=== PATIENT | female | born 1980 | race Caucasian/White ===

== ENCOUNTER 2020-07-10 00:12 | Emergency (ER) | payer OTHER, SELFPAY ==
[2020-07-10 00:22] VITALS: BP 119/48; PULSE 73; PULSE 84; RESP 18; TEMP 36.9; O2SAT 98; BMI 28.9
--- NOTE | 2020-07-10 00:26 | XR_ITS ---
EXAMINATION: XR KNEE, RIGHT CLINICAL INFORMATION: Right knee pain. Fall. COMPARISON: 12/12/2019 TECHNIQUE: Four views of the right knee. FINDINGS: No fracture or subluxation. Compartmental joint spaces are maintained. Moderate joint effusion present. XR/XR knee RT 4V IMPRESSION: No acute osseous abnormality. Moderate joint effusion.
[2020-07-10] MEDS: oxyCODONE HCl Immed Release 5 MG TABLET PO (00:45)
--- NOTE | 2020-07-10 01:23 | ED_ITS ---
HPI - Fall General Chief Complaint: Fall Stated Complaint: knee pain Time Seen by Provider: 07/10/20 00:26 Source: patient Mode of arrival: EMS Limitations: no limitations History of Present Illness HPI Narrative: patient presents to ED for right knee pain after fall. Patient states she fell onto the right knee due uneveness of the sidewalk. patieint denies having any chest pain, headache, dizziness, shorntess of breath, or abdominal pain before fallin. Patient denies hitting head or loss of consciousness. Patient states knee swelling since fall. Patient states this occurred today. Patient denies any other complaints. Related Data Home Medications Medication Instructions Recorded Confirmed tramadol 50 mg tablet 50 mg PO DAILY PRN 06/24/20 Previous Rx's Medication Instructions Recorded oxycodone-acetaminophen [Percocet] 1 tab PO TID PRN #9 tab 07/10/20 Allergies Allergy/AdvReac Type Severity Reaction Status Date / Time No Known Allergies Allergy Unknown UNKNOWN Verified 07/10/20 00:21 [NO KNOWN ALLERGIES] Motrin Allergy Unknown stomach Uncoded 01/18/17 00:00 upset Review of Systems Review of Systems: Yes all other systems are reviewed and are negative Constitutional: Constitutional: Reports as per HPI and Reports no additional constitutional complaints Eyes: Eyes: Reports as per HPI and Reports no additional eye complaints ENT: Reports system reviewed and no additional complaints, except as documented and Reports as per HPI Cardiovascular: Cardiovascular: Reports as per HPI and Reports no additional cardiovascular complaints Respiratory: Respiratory: Reports as per HPI and Reports no additional respiratory complaints Gastrointestinal: Gastrointestinal: Reports as per HPI and Reports no additional gastrointestinal complaints Musculoskeletal: Musculoskeletal: Reports no additional musculoskeletal complaints and Reports as per HPI Comments: Right knee pain Neurologic: Reports system reviewed and no additional complaints, except as do cumented and Reports as per HPI Psychiatric: Psychiatric: Reports no additional psychiatric complaints and Reports as per HPI [facility] Past Medical History Medical History No known health problems Social History Social History Alcohol intake: unknown Smoking Status: Unknown if ever smoked Use of substances other than those prescribed or required for medical reasons: Unknown Advance Directives: No Advance Directives Information Provided: No Physical Exam Vital Signs: Vital Signs: Last Vital Signs Temp 98.6 F 07/10/20 01:52 Pulse 70 11/27/20 01:52 Resp 18 07/10/20 01:52 BP 103/72 07/10/20 01:52 Pulse Ox 100 07/10/20 01:52 Body Mass Index 28.9 Const: General: cooperative, healthy appearing, alert, awake and acute distress HENMT: Head: Yes normal to inspection, Yes No palpable skull fracture present, Yes atraumatic, No Valadez's sign, No contusion, No hematoma, No laceration, No palpable skull fracture, No raccoon eyes and No Temporal artery tenderness present Eyes: General: appearance normal, both eyes and all related structures Neck: Neck: Yes normal visual inspection, Yes full ROM, Yes no lymphadenopathy, Yes no meningeal signs, Yes trachea midline, Yes supple and No tender Chest: Chest palpation & inspection: normal inspection of the chest, normal palpation of entire chest wall and no localized rib tenderness Resp: Effort & Inspection: normal respiratory effort and able to speak in complete sentences Auscultation: clear to auscultation bilaterally Cardio: Jugular venous distension: no JVD Heart sounds: S1 normal heart sound present and S2 normal heart sound present GI: Inspection: Yes normal to inspection and No abdominal wall ecchymosis Palpation (GI): Soft to palpation, not firm, nontender, no guarding and not rigid : General: No CVA tenderness and Yes no CVA tenderness Back/Spine/Pelvis: Back: no CVA tenderness, No CVA tenderness and No back tenderness Neuro: General: gait normal (not able to assees due to pain), no meningeal signs and CN's II-XI intact bilaterally Extrem: Other: right knee swelling and tender to palpation. Negative for any erythema or warmth. Patient has complete range of motion of bilateral upper extremity and left lower extremity. Negative for any either hip tenderness or internal rotation of leg to indicate fracture of the hip or dislocation. Course Course Course Narrative: Patient had x-ray of right knee to evaluate for fractures. Patient does not need any imaging of the head or neck. Patient denies hitting head or having any loss of consciousness. Reevaluation(s) Reevaluation #1: Right knee x-ray shows joint effusion and negative for any fractures. Most likely joint effusion after trauma probably means possible meniscal/ ligament tears. Knee is not erythematous or septic to indicate arthrocentesis. patient informed she should follow-up with ortho for MRI to make sure there is no ligament or meniscal tears with a moderate joint effusion after trauma. Time: 01:43 MDM - Fall MDM Narrative Medical decision making narrative: Knee sprain/contusion Discharge Plan Discharge Clinical Impression: Knee sprain, Joint effusion of knee Patient Disposition: Home, Self-Care Instructions: Knee Sprain (ED), Osteoarthritis (ED), Swollen Knee Joint (ED) Additional Instructions: return to the ED for worsening knee pain, worsening swelling, redness, fever, chills, calf pain, damage of red streaks, swelling of legs, or any other concerning symptoms. Prescriptions: New oxycodone-acetaminophen [Percocet] 5-325 mg tablet 1 tab PO TID PRN (Reason: pain) Qty: 9 RF: 0 No Action tramadol 50 mg tablet 50 mg PO DAILY PRN (Reason: pain) RF: 0 Referrals: Ava Merida MD [Physician] - 2 days (Right knee sprain. Xray shows moderate joint effusion after trauma. Patient will need MRI to rule out meniscus or ligaments tear.) Stand Alone Forms: Work/School Release Interventions: ED Discharge Assessment Last Done: 07/10/20 02:13 Print Language: Montenegrin
[2020-07-10] MEDS: Ketorolac Tromethamine 30 MG/ML VIAL IM (01:39)
[2020-07-10 01:52] VITALS: BP 103/72; PULSE 70; RESP 18; TEMP 37; O2SAT 100
== END 2020-07-10 02:20 | disposition home or self-care (01) ==
PROVIDERS: Emergency Provider Emergency Medicine; PCP Internal Medicine
DX: S83.91XA Sprain of unspecified site of right knee, initial encounter (principal); M25.561 Pain in right knee; M25.461 Effusion, right knee; W18.30XA Fall on same level, unspecified, initial encounter; Y93.9 Activity, unspecified; Y92.9 Unspecified place or not applicable; Y99.9 Unspecified external cause status; Z79.899 Other long term (current) drug therapy
CPT/HCPCS: 73564; 96372; 99284; J1885

== ENCOUNTER 2020-07-16 10:27 | Outpatient (REF) | payer OTHER, SELFPAY ==
--- NOTE | 2020-07-16 10:27 | XR_ITS ---
EXAMINATION: XR KNEE, RIGHT CLINICAL INFORMATION: Pain COMPARISON: July 10, 2020 TECHNIQUE: [place] view of the right knee FINDINGS: On this single view no acute fracture of the patella is evident. The medial and lateral facets appear unremarkable. On prior study of July 10, 2020 there was noted to be an effusion without acute bony abnormality of the right knee. XR/XR knee RT 2V IMPRESSION: No patellar abnormality appreciated.
== END 2020-07-16 10:28 | disposition home or self-care (01) ==
LOC: HO.HOSX 10:27
PROVIDERS: Visit Provider Physician Assistant
DX: M25.569 Pain in unspecified knee (principal); M22.2X9 Patellofemoral disorders, unspecified knee; M23.90 Unspecified internal derangement of unspecified knee
CPT/HCPCS: 73560; 99202

== ENCOUNTER 2021-03-29 20:19 | Emergency (ER) | payer OTHER, SELFPAY ==
[2021-03-29 20:41] VITALS: BP 118/71; PULSE 80; RESP 18; TEMP 37.2; O2SAT 99; BMI 30.1
[2021-03-29 21:37] LABS: Influenza A PCR NEGATIVE (Negative); Influenza B PCR NEGATIVE (Negative); Resp Syncy Virus RNA Qual PCR NEGATIVE (Negative); SARS COV2 PCR INHOUSE NEGATIVE (Negative)
--- NOTE | 2021-03-29 21:44 | ED_ITS ---
HPI - Nausea/Vomiting/Diarrhea General Chief complaint: Nausea/Vomiting/Diarrhea Stated complaint: Chills/Vomiting Time Seen by Provider: 03/29/21 21:36 Source: patient Mode of arrival: ambulatory Limitations: no limitations History of Present Illness MD elicited complaint: nausea and vomiting Onset (ago): hour(s) (since 1am ) Description of vomiting: food contents Associated nausea: Yes Associated abdominal pain: No Location of pain: none Severity: severe Exacerbating factors: eating Relieving factors: none Context: possible food poisoning Associated symptoms: fever/chills Related Data Home Medications Medication Instructions Recorded Confirmed tramadol 50 mg tablet 50 mg PO DAILY PRN 06/24/20 03/04/21 tizanidine 4 mg tablet 4 mg PO TID 07/14/20 03/04/21 Previous Rx's Medication Instructions Recorded oxycodone-acetaminophen 5 mg-325 1 tab PO TID PRN #9 tab 07/10/20 mg tablet (Percocet) tramadol 50 mg tablet 50 mg PO Q8H PRN #20 tab 07/14/20 naproxen 500 mg tablet 500 mg PO BID 30 Days #60 tab 07/16/20 leg brace (Knee Support Brace) #1 ea 07/22/20 quetiapine 25 mg tablet 25 mg PO BEDTIME #30 tab 08/09/20 lorazepam 1 mg tablet 1 mg PO BID PRN #60 tab 09/14/20 ondansetron 4 mg disintegrating 4 mg PO Q8H PRN #20 tab 03/30/21 tablet Allergies Allergy/AdvReac Type Severity Reaction Status Date / Time Motrin Allergy Unknown stomach Uncoded 03/29/21 20:40 upset Review of Systems Review of Systems: Constitutional : No Weight loss, No Fever, No Chills ENT/Mouth : No sore throat, No Rhinorrhea Eyes: No Swelling, No Redness Cardiovascular : No Chest Pain, No SOB, NoEdema Respiratory : No Cough, No Sputum, No Wheezing Gastrointestinal : Positive Nausea, Positive Vomiting, no Diarrhea, no abdominal Pain, No Hematochezia, No Melena Genitourinary : No Dysuria, No Urinary Frequency, No Hematuria, No Urgency Musculoskeletal : No joint pain, No Myalgias, No Joint Swelling Skin : No Skin Lesions, No rash Neuro : No Weakness, No Numbness, No Dizziness, No Headache Psych : No Anxiety/Panic, No Depression Heme/Lymph: No Bruising, No Lymphadenopathy Endocrine : No Polyuria, No Polydipsia All other systems reviewed and are negative. Gastrointestinal: Gastrointestinal: Reports nausea PMFSH Past Medical History Attestation statement: The following information was validated with the patient. Medical History Anxiety No known health problems Surgical History History of tubal ligation Family History Family History Father Hypertension Mother Diabetes Maternal Grandmother Breast cancer Daughter In good health Son In good health Sister In good health Sister In good health Brother In good health Social History Social History (Updated 03/29/21 @ 22:05 by Janina Hanson DO) Alcohol intake: unknown Patient Tobacco Use Status: Never used Tobacco Advance Directives: No Advance Directives Information Provided: No Patient : No Current occupational status: unemployed Physical Exam Vital Signs: Vital Signs: Last Vital Signs Temp 98.8 F 03/29/21 22:00 Pulse 66 03/29/21 22:49 Resp 16 03/29/21 22:49 BP 119/62 03/29/21 22:49 Pulse Ox 97 03/29/21 22:49 Body Mass Index 30.1 Appearance: Alert. Oriented X3. No acute distress. Eyes: Pupils equal, round and reactive to light. ENT: Pharynx mild dry MM Neck: Normal inspection. Neck supple. CVS: Normal heart rate and rhythm. Pulses normal. Respiratory: No respiratory distress. Breath sounds normal. Abdomen: Soft and nontender. Skin: Skin warm and dry. Normal skin color. Normal skin turgor. Extremities: No lower extremity edema. No calf ttp Neuro: Oriented X 3. No motor deficit. No sensory deficit. Course Course Course Narrative: slight elevation in LFTs but no abdominal pain feels better, tolerating PO MDM - Nausea/Vomiting/Diarrhea MDM Narrative Medical decision making narrative: 40 yo female with n/v after eating soup at home, no abdominal ttp will need labs, IVF, IV zofran, COVID swab dispo per results and findings. Lab Data Result diagrams: 03/29/21 22:33 03/29/21 22:33 Labs: Lab Results 03/29/21 03/29/21 03/29/21 Range/Units 20:41 22:33 22:33 WBC 9.9 (4.8-10.8) X10*3/uL RBC 4.08 L (4.20-5.50) X10*6/uL Hgb 13.3 (12.0-16.0) g/dl Hct 38.6 (37-47) % MCV 94.6 (80-98) fL MCH 32.6 (27.0-33.0) pg MCHC 34.5 (31.0-35.0) g/dl RDW 11.7 (11.0-16.0) % Plt Count 258 (160-400) X10*3/uL MPV 10.3 (9.4-12.3) fL Immature Gran % (Auto) 0.3 (0.0-0.4) % Neut % (Auto) 57.9 (45-73) % Lymph % (Auto) 33.8 (20-40) % Marshall % (Auto) 5.9 (2-11) % Eos % (Auto) 1.8 (0-4) % Baso % (Auto) 0.3 (0-2) % Lymph # (Auto) 3.3 (1.2-4.9) X10*3/uL Marshall # (Auto) 0.6 (0.1-1.2) X10*3/uL Eos # (Auto) 0.2 (0.0-0.4) X10*3/uL Baso # (Auto) 0.0 (0.0-0.2) X10*3/uL Abs Immat Gran (auto) 0.03 (0.00-0.03) X10*3/uL Absolute Neuts (auto) 5.7 (2.0-8.3) X10*3/uL Absolute Nucleated RBC 0.000 (0.0-0.012) X10*3/uL Nucleated RBC % (auto) 0.0 (0.0-0.2) /100WBC Sodium 139 (135-145) mmol/L Potassium 3.6 (3.3-5.1) mmol/L Chloride 106 (96-108) mmol/L Carbon Dioxide 26 (22-29) mmol/L Anion Gap 11 L (12-20) BUN 10 (9-16) mg/dL Creatinine 0.73 (0.5-1.4) mg/dL Estim Creat Clear Calc 86.4 Estimated GFR > 60 Random Glucose 93 (60-115) mg/dL Calcium 9.3 (8.4-10.2) mg/dL Magnesium 2.1 (1.6-2.6) mg/dL Total Bilirubin 1.1 H (0.0-1.0) mg/dL Direct Bilirubin 0.3 (0.0-0.5) mg/dL AST 44 H (5-31) U/L ALT 152 H (0-31) U/L Alkaline Phosphatase 109 (39-117) U/L Total Protein 6.6 (6.5-8.0) g/dL Albumin 4.2 (3.5-5.0) g/dL Lipase 13 (8-78) U/L Urine Color Urine Appearance Urine pH (5.0-8.0) Ur Specific [place] (1.005-1.025) Urine Protein (NEG-TRACE) MG/DL Urine Glucose (UA) (NEG) MG/DL Urine Ketones (NEG) MG/DL Urine Blood (NEG) Urine Nitrite (NEG) Ur Leukocyte Esterase (NEG) Urine RBC (0) /HPF Urine WBC (0-4) /HPF Ur Squamous Epith Cells /LPF Urine Bacteria /LPF Urine Test (NEGATIVE) Coronavirus (PCR) NEGATIVE (Negative) Influenza Type A (PCR) NEGATIVE (Negative) Influenza Type B (PCR) NEGATIVE (Negative) RSV RNA Qual (PCR) NEGATIVE (Negative) 03/29/21 03/29/21 Range/Units 22:44 22:45 WBC (4.8-10.8) X10*3/uL RBC (4.20-5.50) X10*6/uL Hgb (12.0-16.0) g/dl Hct (37-47) % MCV (80-98) fL MCH (27.0-33.0) pg MCHC (31.0-35.0) g/dl RDW (11.0-16.0) % Plt Count (160-400) X10*3/uL MPV (9.4-12.3) fL Immature Gran % (Auto) (0.0-0.4) % Neut % (Auto) (45-73) % Lymph % (Auto) (20-40) % Marshall % (Auto) (2-11) % Eos % (Auto) (0-4) % Baso % (Auto) (0-2) % Lymph # (Auto) (1.2-4.9) X10*3/uL Marshall # (Auto) (0.1-1.2) X10*3/uL Eos # (Auto) (0.0-0.4) X10*3/uL Baso # (Auto) (0.0-0.2) X10*3/uL Abs Immat Gran (auto) (0.00-0.03) X10*3/uL Absolute Neuts (auto) (2.0-8.3) X10*3/uL Absolute Nucleated RBC (0.0-0.012) X10*3/uL Nucleated RBC % (auto) (0.0-0.2) /100WBC Sodium (135-145) mmol/L Potassium (3.3-5.1) mmol/L Chloride (96-108) mmol/L Carbon Dioxide (22-29) mmol/L Anion Gap (12-20) BUN (9-16) mg/dL Creatinine (0.5-1.4) mg/dL Estim Creat Clear Calc Estimated GFR Random Glucose (60-115) mg/dL Calcium (8.4-10.2) mg/dL Magnesium (1.6-2.6) mg/dL Total Bilirubin (0.0-1.0) mg/dL Direct Bilirubin (0.0-0.5) mg/dL AST (5-31) U/L ALT (0-31) U/L Alkaline Phosphatase (39-117) U/L Total Protein (6.5-8.0) g/dL Albumin (3.5-5.0) g/dL Lipase (8-78) U/L Urine Color YELLOW Urine Appearance CLEAR Urine pH 6.0 (5.0-8.0) Ur Specific [place] 1.025 (1.005-1.025) Urine Protein NEG (NEG-TRACE) MG/DL Urine Glucose (UA) NEG (NEG) MG/DL Urine Ketones 5 (NEG) MG/DL Urine Blood TRACE (NEG) Urine Nitrite NEG (NEG) Ur Leukocyte Esterase NEG (NEG) Urine RBC 0-2 (0) /HPF Urine WBC 0 (0-4) /HPF Ur Squamous Epith Cells 1+ /LPF Urine Bacteria 1+ /LPF Urine Test NEGATIVE (NEGATIVE) Coronavirus (PCR) (Negative) Influenza Type A (PCR) (Negative) Influenza Type B (PCR) (Negative) RSV RNA Qual (PCR) (Negative) Discharge Plan Discharge Clinical Impression: Elevated liver function tests Vomiting Qualifiers: Vomiting type: unspecified Vomiting Intractability: non-intractable Nausea presence: with nausea Qualified Code(s): R11.2 - Nausea with vomiting, unspecified Patient Disposition: Home, Self-Care Instructions: Acute Nausea and Vomiting (ED) Additional Instructions: return to ED for any worsening symptoms or concerns your liver tests were slightly elevated likely due to vomiting please recheck in 3 days. ochoa pruebas de h?gado estaban ligeramente elevadas, probablemente debido a v?mitos, vuelva a verificar en 3 d?as. Prescriptions: New ondansetron 4 mg tablet,disintegrating 4 mg PO Q8H PRN (Reason: nausea and vomiting) Qty: 20 RF: 0 No Action tramadol 50 mg tablet 50 mg PO DAILY PRN (Reason: pain) RF: 0 quetiapine 25 mg tablet 25 mg PO BEDTIME Qty: 30 RF: 0 oxycodone-acetaminophen [Percocet] 5-325 mg tablet 1 tab PO TID PRN (Reason: pain) Qty: 9 RF: 0 tizanidine 4 mg tablet 4 mg PO TID RF: 0 tramadol 50 mg tablet 50 mg PO Q8H PRN (Reason: pain) Qty: 20 RF: 0 lorazepam 1 mg tablet 1 mg PO BID PRN (Reason: anxiety) Qty: 60 RF: 0 naproxen 500 mg tablet 500 mg PO BID 30 Days Qty: 60 RF: 3 (DME) Knee Support Brace Misc See Rx Instructions .MEDSUPPLY Qty: 1 RF: 0 Referrals: Physician,Unknown [Primary Care Provider] - 3 days Print Language: Zimbabwean
[2021-03-29 22:00] VITALS: BP 102/65; PULSE 85; RESP 18; TEMP 37.1; O2SAT 100
[2021-03-29] MEDS: 0.9 % Sodium Chloride 1,000 ML 999 ML IVCONT ×2 (22:36)
[2021-03-29 22:37] LABS: MANUAL DIFF FLAG NO
[2021-03-29] MEDS: ondansetron HCL 4 MG/2 ML VIAL IVPUSH (22:40)
[2021-03-29 22:43] LABS: Basophils Percent Auto 0.3 % (0-2); Eosinophils Absolute Auto 0.2 X10*3/uL (0.0-0.4); Eosinophils Percent Auto 1.8 % (0-4); Hematocrit 38.6 % (37-47); Hemoglobin 13.3 g/dl (12.0-16.0); Imm Gran Abs Auto 0.03 X10*3/uL (0.00-0.03); Imm Gran Pct Auto 0.3 % (0.0-0.4); Lymphocytes Absolute Auto 3.3 X10*3/uL (1.2-4.9); Lymphocytes Percent Auto 33.8 % (20-40); Mean Corpuscular HGB Conc 34.5 g/dl (31.0-35.0); Mean Corpuscular Hemoglobin 32.6 pg (27.0-33.0); Mean Corpuscular Volume 94.6 fL (80-98); Mean Platelet Volume 10.3 fL (9.4-12.3); Monocytes Absolute Auto 0.6 X10*3/uL (0.1-1.2); Monocytes Percent Auto 5.9 % (2-11); Neutrophils Absolute Auto 5.7 X10*3/uL (2.0-8.3); Neutrophils Percent Auto 57.9 % (45-73); Platelet Count 258 X10*3/uL (160-400); Red Blood Count 4.08 X10*6/uL (4.20-5.50); Red Cell Distribution Width 11.7 % (11.0-16.0); White Blood Count 9.9 X10*3/uL (4.8-10.8)
[2021-03-29 22:49] VITALS: BP 119/62; PULSE 66; RESP 16; O2SAT 97
[2021-03-29 22:50] LABS: Glucose Urine UA NEG (NEG); Leukocyte Esterase Urine NEG (NEG); Nitrite Urine NEG (NEG); Specific Gravity - Urine 1.025 (1.005-1.025); UACC Culture Trigger NO; Urine Blood TRACE (NEG); Urine Ketones 5 MG/DL (NEG); Urine Protein NEG (NEG-TRACE)
[2021-03-29 22:52] LABS: UPreg QC Valid YES; Urine Pregnancy NEGATIVE (NEGATIVE)
[2021-03-29 22:53] LABS: Appearance Urine CLEAR; Color Urine YELLOW
[2021-03-29 22:57] LABS: Bacteria Urine 1+ /LPF; RBC Urine 0-2 /HPF (0); Squamous Epithelial Cell Urine 1+ /LPF; WBC Urine 0 /HPF (0-4)
[2021-03-29 23:11] LABS: Alanine Aminotransferase 152 U/L (0-31); Albumin Level 4.2 g/dL (3.5-5.0); Alkaline Phosphatase 109 U/L (39-117); Anion Gap 11 (12-20); Aspartate Amino Transferase 44 U/L (5-31); Bilirubin Direct 0.3 mg/dL (0.0-0.5); Bilirubin Total 1.1 mg/dL (0.0-1.0); Blood Urea Nitrogen 10 mg/dL (9-16); Calcium 9.3 mg/dL (8.4-10.2); Carbon Dioxide 26 mmol/L (22-29); Chloride 106 mmol/L (96-108); Creatinine Clr Calc Pharmacy 86.4; Estimated Glomerular Filt Rate > 60; Glucose Random 93 mg/dL (60-115); Lipase 13 U/L (8-78); Magnesium 2.1 mg/dL (1.6-2.6); Potassium 3.6 mmol/L (3.3-5.1); Sodium 139 mmol/L (135-145); Total Protein 6.6 g/dL (6.5-8.0)
== END 2021-03-30 00:35 | disposition home or self-care (01) ==
PROVIDERS: Student in an Organized Health Care Education/Training Program; Emergency Provider Emergency Medicine
DX: R11.2 Nausea with vomiting, unspecified (principal); R79.89 Other specified abnormal findings of blood chemistry; Z20.822 Contact with and (suspected) exposure to COVID-19
CPT/HCPCS: 0241U; 36415; 80048; 80076; 81001; 81025; 83690; 83735; 85025; 96361; 96374; 99283; 99284; J2405

== ENCOUNTER 2021-07-28 21:45 | Emergency (ER) | payer OTHER, SELFPAY ==
[2021-07-28 22:10] VITALS: BP 110/72; PULSE 75; RESP 18; TEMP 36.6; O2SAT 98; BMI 30.4
--- NOTE | 2021-07-28 22:52 | ED.GENADULT ---
HPI - General Adult General Chief complaint: Upper Respiratory Symptoms Stated complaint: Covid symptoms Time Seen by Provider: 07/28/21 22:52 Source: patient Mode of arrival: ambulatory Limitations: no limitations History of Present Illness HPI narrative: headache and myalgias, not improved with tylenol. Patient has had fever. Patient started with symptoms this morning. Patient denies . Patient has slight cough. Patient is not vaccinated for COVID or influenza. Onset (ago): hour(s) Location: head, chest and back Severity: mild Pain Consistency: constant Associated symptoms: cough, fever/chills and headaches Related Data Home Medications Medication Instructions Recorded Confirmed tramadol 50 mg tablet 50 mg PO DAILY PRN 06/24/20 03/04/21 tizanidine 4 mg tablet 4 mg PO TID 07/14/20 03/04/21 Previous Rx's Medication Instructions Recorded oxycodone-acetaminophen 5 mg-325 1 tab PO TID PRN #9 tab 07/10/20 mg tablet (Percocet) tramadol 50 mg tablet 50 mg PO Q8H PRN #20 tab 07/14/20 naproxen 500 mg tablet 500 mg PO BID 30 Days #60 tab 07/16/20 leg brace (Knee Support Brace) #1 ea 07/22/20 quetiapine 25 mg tablet 25 mg PO BEDTIME #30 tab 08/09/20 lorazepam 1 mg tablet 1 mg PO BID PRN #60 tab 09/14/20 ondansetron 4 mg disintegrating 4 mg PO Q8H PRN #20 tab 03/30/21 tablet naproxen 500 mg tablet (Naprosyn) 500 mg PO BID #20 tab 07/29/21 Allergies Allergy/AdvReac Type Severity Reaction Status Date / Time Motrin Allergy Unknown stomach Uncoded 03/29/21 20:40 upset Review of Systems Constitutional: Constitutional: Reports no additional constitutional complaints Eyes: Eyes: Reports no additional eye complaints ENT: Denies dizziness Cardiovascular: Cardiovascular: Reports no additional cardiovascular complaints Respiratory: Respiratory: Reports as per HPI Gastrointestinal: Gastrointestinal: Reports no additional gastrointestinal complaints Genitourinary: Genitourinary: Reports no additional female genitourinary complaints Musculoskeletal: Musculoskeletal: Reports no additional musculoskeletal complaints Integumentary/Breasts: Skin/Breast: Denies rash Neurologic: Reports system reviewed and no additional complaints, except as documented, Denies dizziness and Denies Sensory deficit (Neuro) Psychiatric: Psychiatric: Denies anxiety PMFSH Past Medical History Medical History Anxiety No known health problems Surgical History History of tubal ligation Family History Family History Father Hypertension Mother Diabetes Maternal Grandmother Breast cancer Daughter In good health Son In good health Sister In good health Sister In good health Brother In good health Social History Social History Alcohol intake: unknown Patient Tobacco Use Status: Never used Tobacco Advance Directives: No Advance Directives Information Provided: Yes Current occupational status: unemployed Physical Exam Vital Signs: Vital Signs: Last Vital Signs Temp 98 F 07/28/21 22:10 Pulse 75 07/28/21 22:10 Resp 18 07/28/21 22:10 BP 110/72 07/28/21 22:10 Pulse Ox 98 07/28/21 22:10 BMI result Body Mass Index 30.4 Const: General: healthy appearing Nutritional Appearance: average body habitus Orientation/consciousness: oriented to person and patient oriented x3 Limitations: no limitations HENMT: Head: Yes normal to inspection Ears: external ears normal General nose exam: Normal external nose present Mouth: Normal oral and palatal mucosa present and oropharynx normal Throat: Yes posterior oropharynx normal Eyes: General: appearance normal, both eyes and all related structures Neck: Other: supple Neck: Yes normal visual inspection Chest: Chest palpation & inspection: normal inspection of the chest Resp: Auscultation: clear to auscultation bilaterally Cardio: Jugular venous distension: no JVD Rate: regular rate Rhythm: regular rhythm Heart sounds: S1 normal heart sound present and S2 normal heart sound present GI: Inspection: Yes normal to inspection Palpation (GI): Soft to palpation, nontender and No hepatosplenomegaly present Auscultation: normal bowel sounds : General: Yes no CVA tenderness Back/Spine/Pelvis: Back: no CVA tenderness Skin: General skin exam: no rashes or lesions noted Neuro: General: oriented to person and patient oriented x3 Cranial nerves: Yes CN's II-XII intact bilaterally Motor exam (neuro): 5/5 motor strength present throughout Sensory Exam: No Sensory deficit (Neuro) Extrem: General: Yes normal to inspection Psych: Appearance: grossly normal Course Reevaluation(s) Reevaluation #1: Covid negative, will start NSAIDs and dc home Time: 00:43 Medical Decision Making Lab Data Labs: Lab Results 07/28/21 Range/Units 23:36 Influenza Type A (PCR) NEGATIVE (Negative) Influenza Type B (PCR) NEGATIVE (Negative) RSV RNA Qual (PCR) NEGATIVE (Negative) SARS-CoV-2 RNA (RT-PCR) NEGATIVE (Negative) Discharge Plan Discharge Clinical Impression: Viral infection Upper respiratory infection Qualifiers: URI type: unspecified URI Qualified Code(s): J06.9 - Acute upper respiratory infection, unspecified Patient Disposition: Home, Self-Care Instructions: Viral Syndrome (ED) Prescriptions: New naproxen [Naprosyn] 500 mg tablet 500 mg PO BID Qty: 20 RF: 0 No Action tramadol 50 mg tablet 50 mg PO DAILY PRN (Reason: pain) RF: 0 quetiapine 25 mg tablet 25 mg PO BEDTIME Qty: 30 RF: 0 oxycodone-acetaminophen [Percocet] 5-325 mg tablet 1 tab PO TID PRN (Reason: pain) Qty: 9 RF: 0 ondansetron 4 mg tablet,disintegrating 4 mg PO Q8H PRN (Reason: nausea and vomiting) Qty: 20 RF: 0 tizanidine 4 mg tablet 4 mg PO TID RF: 0 tramadol 50 mg tablet 50 mg PO Q8H PRN (Reason: pain) Qty: 20 RF: 0 lorazepam 1 mg tablet 1 mg PO BID PRN (Reason: anxiety) Qty: 60 RF: 0 naproxen 500 mg tablet 500 mg PO BID 30 Days Qty: 60 RF: 3 (DME) Knee Support Brace Misc See Rx Instructions .MEDSUPPLY Qty: 1 RF: 0 Referrals: Bri Benitez MD [Primary Care Provider] - 1 week
[2021-07-28] MEDS: Ketorolac Tromethamine 60 MG/2 ML VIAL IM (23:38)
[2021-07-29 00:34] LABS: Influenza A PCR NEGATIVE (Negative); Influenza B PCR NEGATIVE (Negative); Resp Syncy Virus RNA Qual PCR NEGATIVE (Negative); SARS COV2 PCR INHOUSE NEGATIVE (Negative)
== END 2021-07-29 01:48 | disposition home or self-care (01) ==
PROVIDERS: Emergency Provider Emergency Medicine; PCP Internal Medicine
DX: J06.9 Acute upper respiratory infection, unspecified (principal); B34.9 Viral infection, unspecified; Z20.822 Contact with and (suspected) exposure to COVID-19
CPT/HCPCS: 0241U; 36415; 96372; 99284; J1885

== ENCOUNTER 2022-08-09 22:46 | Emergency (ER) | payer OTHER, SELFPAY ==
[2022-08-09 22:55] VITALS: BP 136/76; PULSE 74; RESP 18; TEMP 36.9; O2SAT 97; BMI 30.4
--- NOTE | 2022-08-09 22:55 | ED_ITS ---
HPI - General Adult General Chief complaint: Nausea/Vomiting/Diarrhea <BRISSA Vance - Last Filed: 08/09/22 22:57> Stated complaint: vomiting 6 days <BRISSA Vance - Last Filed: 08/09/22 22:57> Time Seen by Provider: 08/10/22 02:36 <BRISSA Vance - Last Filed: 08/09/22 22:57> Source: patient and family <Yonatan Maher MD - Last Filed: 08/10/22 06:38> Mode of arrival: ambulatory <Yonatan Maher MD - Last Filed: 08/10/22 06:38> Limitations: no limitations <Yonatan Maher MD - Last Filed: 08/10/22 06:38> History of Present Illness HPI narrative: 42-year-old female presented with abdominal pain and nausea vomiting for 6 days. Patient is here for evaluation for nausea and vomiting, started 6 days ago on day 1. Patient had some abdominal pain that is resolved now but persistent of the nausea and vomiting on unable to keep anything down patient feels generally weak no upper respiratory symptoms or flu-like symptoms. No fever, no chills, no recent travel, no sick contacts. <Yonatan Maher MD - Last Filed: 08/10/22 06:38> Related Data Home medications: Home Medications Medication Instructions Recorded Confirmed tramadol 50 mg tablet 50 mg PO DAILY PRN pain 06/24/20 03/04/21 tizanidine 4 mg tablet 4 mg PO TID 07/14/20 03/04/21 Previous Rx's Medication Instructions Recorded oxycodone-acetaminophen 5 mg-325 1 tab PO TID PRN pain #9 tabs 07/10/20 mg tablet (Percocet) tramadol 50 mg tablet 50 mg PO Q8H PRN pain #20 tabs 07/14/20 naproxen 500 mg tablet 500 mg PO BID 30 days #60 tabs 07/16/20 leg brace (Knee Support Brace) #1 ea 07/22/20 quetiapine 25 mg tablet 25 mg PO BEDTIME #30 tabs 08/09/20 lorazepam 1 mg tablet 1 mg PO BID PRN anxiety #60 tabs 09/14/20 ondansetron 4 mg disintegrating 4 mg PO Q8H PRN nausea and 03/30/21 tablet vomiting #20 tabs naproxen 500 mg tablet (Naprosyn) 500 mg PO BID #20 tabs 07/29/21 omeprazole magnesium 20 mg 20 mg PO BID #30 tabs 08/10/22 tablet,delayed release (Prilosec OTC) ondansetron HCl 4 mg tablet 4 mg PO Q8-12H PRN nausea and 08/10/22 vomiting #7 tabs <BRISSA Vance - Last Filed: 08/09/22 22:57> Allergies/adverse reactions: Allergies Allergy/AdvReac Type Severity Reaction Status Date / Time Motrin Allergy Unknown stomach Uncoded 03/29/21 20:40 upset <BRISSA Vance - Last Filed: 08/09/22 22:57> Review of Systems Review of Systems: All other systems are reviewed and are negative Constitutional: Reports as per HPI and Reports no additional constitutional complaints Eyes: Reports as per HPI and Reports no additional eye complaints Reports system reviewed and no additional complaints, except as documented Cardiovascular: Reports as per HPI and Reports no additional cardiovascular complaints Respiratory: Reports as per HPI and Reports no additional respiratory complaints Gastrointestinal: Reports as per HPI and Reports no additional gastrointestinal complaints Genitourinary: Reports no additional female genitourinary complaints Musculoskeletal: Reports no additional musculoskeletal complaints Skin/Breast: Reports system reviewed and no additional complaints, except as docu Psychiatric: Reports no additional psychiatric complaints Endocrine: Reports no additional endocrine complaints Hematologic/Lymphatic: Reports no additional hematologic/lymphatic complaints Allergic/Immunologic: Reports no additional allergic/immunologic complaints Reports system reviewed and no additional complaints, except as documented and Reports Abnormal speech present <Yonatan Maher MD - Last Filed: 08/10/22 06:3 8> [facility] Past Medical History Medical History: Medical History Anxiety No known health problems <BRISSA Vance - Last Filed: 08/09/22 22:57> Surgical History: Surgical History History of tubal ligation <BRISSA Vance - Last Filed: 08/09/22 22:57> Family History Family History: Family History Father Hypertension Mother Diabetes Maternal Grandmother Breast cancer Daughter In good health Son In good health Sister In good health Sister In good health Brother In good health <BRISSA Vance - Last Filed: 08/09/22 22:57> Social History Social History: Social History Alcohol intake: unknown Patient Tobacco Use Status: Never used Tobacco Advance Directives: No Advance Directives Information Provided: Yes Current occupational status: unemployed <BRISSA Vance - Last Filed: 08/09/22 22:57> Physical Exam ED Vital Signs: Vital Signs - 24 hr 08/09/22 22:55 08/10/22 00:39 08/10/22 02:22 Temperature 98.5 F 97.8 F 97.8 F Pulse Rate 74 67 62 Respiratory Rate 18 18 16 Blood Pressure 136/76 124/89 113/61 Pulse Oximetry 97 99 96 Oxygen Delivery Method Room Air Room Air Room Air 08/10/22 04:15 08/10/22 06:25 Temperature 97.9 F 97.7 F Pulse Rate 89 70 Respiratory Rate 18 18 Blood Pressure 107/56 L 101/48 L Pulse Oximetry 97 96 Oxygen Delivery Method Room Air Room Air BMI result Body Mass Index 30.4 <BRISSA Vance - Last Filed: 08/09/22 22:57> Vital Signs - 24 hr 08/09/22 22:55 08/10/22 00:39 08/10/22 02:22 Temperature 98.5 F 97.8 F 97.8 F Pulse Rate 74 67 62 Respiratory Rate 18 18 16 Blood Pressure 136/76 124/89 113/61 Pulse Oximetry 97 99 96 Oxygen Delivery Method Room Air Room Air Room Air 08/10/22 04:15 08/10/22 06:25 Temperature 97.9 F 97.7 F Pulse Rate 89 70 Respiratory Rate 18 18 Blood Pressure 107/56 L 101/48 L Pulse Oximetry 97 96 Oxygen Delivery Method Room Air Room Air BMI result Body Mass Index 30.4 vital signs have been reviewed as appeared to be correct. Blood pressure normal. Heart rate normal. Respiration rate normal. Temperature normal. Oxygen saturation normal. <Yonatan Maher MD - Last Filed: 08/10/22 06:38> Appearance: Alert. Oriented X3. No acute distress. Head: Normal external exam. Normocephalic. Atraumatic. No Valadez signs noted. No raccoon eyes noted Eyes: PERRLA. EOMI. Conjunctiva and sclera normal. Eyelids normal. ENT: TM's Normal. Pharynx normal. Uvula midline. Moist mucous membranes. No trismus noted. No drooling noted. No muffled voice noted. Neck: Normal inspection. Neck supple. FROM. No adenopathy. Thyroid Normal. No meningeal signs. No neck mass noted. CVS: Normal heart rate and rhythm. Heart sound normal. No murmurs noted. Pulses normal throughout. Respiratory: No respiratory distress. Painless inspiration. Breath sounds normal. No wheezes/rales/rhonchi noted. Chest nontender. No accessory muscle usage noted or decreased air movement noted. Abdomen: Soft and nontender. Bowel sounds normal in all 4 quadrants. No distention noted. No organomegaly noted. No visible injury noted. Back: No CVA tenderness. Full range of motion noted. Skin: Skin warm and dry. Normal skin color. Normal skin turgor. No rashes/lesions/lacerations noted. Extremities: No lower extremity edema. Extremities exhibit normal range of motion. Extremities nontender. Neuro: Oriented X 3. Cranial nerve exam: II-XII are grossly intact No motor deficit. No sensory deficit. Reflexes normal. <Yonatan Maher MD - Last Filed: 08/10/22 06:38> Course Course Course Narrative: [id number] 42 year old female presents w/ nausea, vomiting X 6 days. Reports fatigue, malise and difficulty keeping food down. PE benign Plan- labs, viral panel <BRISSA Vance - Last Filed: 08/09/22 22:57> Reevaluation(s) Reevaluation #1: Patient feels better after receiving IV fluids/Pepcid/ Zofran able to tolerate p.o. 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 <Yonatan Maher MD - Last Filed: 08/10/22 06:38> Medications Administered Discontinued Medications Generic Name Dose Route Start Last Admin Trade Name Juliana PRN Reason Stop Dose Admin Al Hydroxide/Mg Hydroxide 30 ml 08/10/22 04:57 08/10/22 05:28 Magnesium Hydrox/Alum Hydrox 30 Ml Oral.Susp PO 08/10/22 04:58 30 ml ONCE ONE Administration Famotidine 20 mg 08/10/22 04:58 08/10/22 05:28 Famotidine/Pf 20 Mg/2 Ml Vial IVPUSH 08/10/22 04:59 20 mg ONCE ONE Administration Sodium Chloride 1,000 mls @ 999 mls/hr 08/10/22 04:57 08/10/22 05:28 Ns IV 08/10/22 05:57 999 mls/hr .Q1H1M ONE Administration Ondansetron HCl 4 mg 08/09/22 22:55 08/09/22 23:11 Ondansetron Odt 4 Mg Tab.Rapdis TRANSLINGU 08/09/22 22:56 4 mg ONCE ONE Administration Ondansetron HCl 4 mg 08/10/22 04:57 08/10/22 05:28 Ondansetron Hcl 4 Mg/2 Ml Vial IVPUSH 08/10/22 04:58 4 mg ONCE ONE Administration <BRISSA Vance - Last Filed: 08/09/22 22:57> Medications Administered Discontinued Medications Generic Name Dose Route Start Last Admin Trade Name Juliana PRN Reason Stop Dose Admin Al Hydroxide/Mg Hydroxide 30 ml 08/10/22 04:57 08/10/22 05:28 Magnesium Hydrox/Alum Hydrox 30 Ml Oral.Susp PO 08/10/22 04:58 30 ml ONCE ONE Administration Famotidine 20 mg 08/10/22 04:58 08/10/22 05:28 Famotidine/Pf 20 Mg/2 Ml Vial IVPUSH 08/10/22 04:59 20 mg ONCE ONE Administration Sodium Chloride 1,000 mls @ 999 mls/hr 08/10/22 04:57 08/10/22 05:28 Ns IV 08/10/22 05:57 999 mls/hr .Q1H1M ONE Administration Ondansetron HCl 4 mg 08/09/22 22:55 08/09/22 23:11 Ondansetron Odt 4 Mg Tab.Rapdis TRANSLINGU 08/09/22 22:56 4 mg ONCE ONE Administration Ondansetron HCl 4 mg 08/10/22 04:57 08/10/22 05:28 Ondansetron Hcl 4 Mg/2 Ml Vial IVPUSH 08/10/22 04:58 4 mg ONCE ONE Administration <Yonatan Maher MD - Last Filed: 08/10/22 06:38> Medical Decision Making Differential Diagnosis Differential Diagnoses: The differential diagnosis associated with the presentation includes ( Gastritis/viral gastroenteritis/ viral infection.) <Yonatan Maher MD - Last Filed: 08/10/22 06:38> Lab Data MDM Lab Attestation statement: I reviewed the patient's lab results. <Yonatan Maher MD - Last Filed: 1 10/11/21 06:38> Result Diagrams: : 08/09/22 23:01 08/09/22 23:01 <BRISSA Vance - Last Filed: 08/09/22 22:57> Labs: Lab Results 08/09/22 08/09/22 08/09/22 Range/Units 23:01 23:01 23:01 WBC 10.0 (4.8-10.8) X10*3/uL RBC 4.23 (4.20-5.50) X10*6/uL Hgb 13.4 (12.0-16.0) g/dl Hct 39.5 (37.0-47.0) % MCV 93.4 (80.0-98.0) fL MCH 31.7 (27.0-33.0) pg MCHC 33.9 (31.0-35.0) g/dl RDW 11.3 (11.0-16.0) % Plt Count 279 (160-400) X10*3/uL MPV 10.4 (9.4-12.3) fL Immature Gran % (Auto) 0.2 (0.0-0.4) % Neut % (Auto) 47.3 (45-73) % Lymph % (Auto) 43.6 H (20-40) % Wilson % (Auto) 6.0 (2-11) % Eos % (Auto) 2.5 (0-4) % Baso % (Auto) 0.4 (0-2) % Lymph # (Auto) 4.4 (1.2-4.9) X10*3/uL Wilson # (Auto) 0.6 (0.1-1.2) X10*3/uL Eos # (Auto) 0.3 (0.0-0.4) X10*3/uL Baso # (Auto) 0.0 (0.0-0.2) X10*3/uL Abs Immat Gran (auto) 0.02 (0.00-0.03) X10*3/uL Absolute Neuts (auto) 4.8 (2.0-8.3) x10*3/uL Absolute Nucleated RBC 0.000 (0.0-0.012) X10*3/uL Nucleated RBC % (auto) 0.0 (0.0-0.2) /100WBC Sodium 139 (135-145) mmol/L Potassium 4.1 (3.3-5.1) mmol/L Chloride 103 (96-108) mmol/L Carbon Dioxide 29 (22-29) mmol/L Anion Gap 11 L (12-20) BUN 11 (9-16) mg/dL Creatinine 0.70 (0.5-1.4) mg/dL Estim Creat Clear Calc 89.0 Estimated GFR > 60 Random Glucose 114 (60-115) mg/dL Calcium 9.5 (8.4-10.2) mg/dL Total Bilirubin 0.4 (0.0-1.0) mg/dL AST 16 D (5-31) U/L ALT 20 (0-31) U/L Alkaline Phosphatase 64 D (39-117) U/L Total Protein 6.7 (6.5-8.0) g/dL Albumin 4.3 (3.5-5.0) g/dL Lipase 24 (8-78) U/L Influenza Type A (PCR) NEGATIVE (Negative) Influenza Type B (PCR) NEGATIVE (Negative) RSV RNA Qual (PCR) NEGATIVE (Negative) SARS-CoV-2 RNA (RT-PCR) NEGATIVE (Negative) <BRISSA Vance - Last Filed: 08/09/22 22:57> Lab Results 08/09/22 08/09/22 08/09/22 Range/Units 23:01 23:01 23:01 WBC 10.0 (4.8-10.8) X10*3/uL RBC 4.23 (4.20-5.50) X10*6/uL Hgb 13.4 (12.0-16.0) g/dl Hct 39.5 (37.0-47.0) % MCV 93.4 (80.0-98.0) fL MCH 31.7 (27.0-33.0) pg MCHC 33.9 (31.0-35.0) g/dl RDW 11.3 (11.0-16.0) % Plt Count 279 (160-400) X10*3/uL MPV 10.4 (9.4-12.3) fL Immature Gran % (Auto) 0.2 (0.0-0.4) % Neut % (Auto) 47.3 (45-73) % Lymph % (Auto) 43.6 H (20-40) % Wilson % (Auto) 6.0 (2-11) % Eos % (Auto) 2.5 (0-4) % Baso % (Auto) 0.4 (0-2) % Lymph # (Auto) 4.4 (1.2-4.9) X10*3/uL Wilson # (Auto) 0.6 (0.1-1.2) X10*3/uL Eos # (Auto) 0.3 (0.0-0.4) X10*3/uL Baso # (Auto) 0.0 (0.0-0.2) X10*3/uL Abs Immat Gran (auto) 0.02 (0.00-0.03) X10*3/uL Absolute Neuts (auto) 4.8 (2.0-8.3) x10*3/uL Absolute Nucleated RBC 0.000 (0.0-0.012) X10*3/uL Nucleated RBC % (auto) 0.0 (0.0-0.2) /100WBC Sodium 139 (135-145) mmol/L Potassium 4.1 (3.3-5.1) mmol/L Chloride 103 (96-108) mmol/L Carbon Dioxide 29 (22-29) mmol/L Anion Gap 11 L (12-20) BUN 11 (9-16) mg/dL Creatinine 0.70 (0.5-1.4) mg/dL Estim Creat Clear Calc 89.0 Estimated GFR > 60 Random Glucose 114 (60-115) mg/dL Calcium 9.5 (8.4-10.2) mg/dL Total Bilirubin 0.4 (0.0-1.0) mg/dL AST 16 D (5-31) U/L ALT 20 (0-31) U/L Alkaline Phosphatase 64 D (39-117) U/L Total Protein 6.7 (6.5-8.0) g/dL Albumin 4.3 (3.5-5.0) g/dL Lipase 24 (8-78) U/L Influenza Type A (PCR) NEGATIVE (Negative) Influenza Type B (PCR) NEGATIVE (Negative) RSV RNA Qual (PCR) NEGATIVE (Negative) SARS-CoV-2 RNA (RT-PCR) NEGATIVE (Negative) <Yonatan Maher MD - Last Filed: 08/10/22 06:38> Discharge Plan Discharge Clinical Impression: Gastritis <BRISSA Vance - Last Filed: 08/09/22 22:57> Patient Disposition: Home, Self-Care <BRISSA Vance - Last Filed: 08/09/22 22:57> Instructions: Gastritis (ED) <BRISSA Vance - Last Filed: 08/09/22 22:57> Prescriptions: New ondansetron HCl 4 mg tablet 4 mg PO Q8-12H PRN (Reason: nausea and vomiting) Qty: 7 0RF omeprazole magnesium [Prilosec OTC] 20 mg tablet,delayed release (DR/EC) 20 mg PO BID Qty: 30 0RF No Action tramadol 50 mg tablet 50 mg PO DAILY PRN (Reason: pain) quetiapine 25 mg tablet 25 mg PO BEDTIME Qty: 30 0RF oxycodone-acetaminophen [Percocet] 5-325 mg tablet 1 tab PO TID PRN (Reason: pain) Qty: 9 0RF Rx Instructions: side effect is drowsiness. Do not take at work or while driving. ondansetron 4 mg tablet,disintegrating 4 mg PO Q8H PRN (Reason: nausea and vomiting) Qty: 20 0RF naproxen [Naprosyn] 500 mg tablet 500 mg PO BID Qty: 20 0RF tizanidine 4 mg tablet 4 mg PO TID tramadol 50 mg tablet 50 mg PO Q8H PRN (Reason: pain) Qty: 20 0RF lorazepam 1 mg tablet 1 mg PO BID PRN (Reason: anxiety) Qty: 60 0RF naproxen 500 mg tablet 500 mg PO BID 30 Days Qty: 60 3RF (DME) Knee Support Brace Misc See Rx Instructions .MEDSUPPLY Qty: 1 0RF Rx Instructions: genumed [id number] <BRISSA Vance - Last Filed: 08/09/22 22:57> Referrals: Vera Cates MD [Physician] - <BRISSA Vnace - Last Filed: 08/09/22 22:57>
[2022-08-09 23:05] LABS: MANUAL DIFF FLAG NO
[2022-08-09 23:08] LABS: Basophils Percent Auto 0.4 % (0-2); Eosinophils Absolute Auto 0.3 X10*3/uL (0.0-0.4); Eosinophils Percent Auto 2.5 % (0-4); Hematocrit 39.5 % (37.0-47.0); Hemoglobin 13.4 g/dl (12.0-16.0); Imm Gran Abs Auto 0.02 X10*3/uL (0.00-0.03); Imm Gran Pct Auto 0.2 % (0.0-0.4); Lymphocytes Absolute Auto 4.4 X10*3/uL (1.2-4.9); Lymphocytes Percent Auto 43.6 % (20-40); Mean Corpuscular HGB Conc 33.9 g/dl (31.0-35.0); Mean Corpuscular Hemoglobin 31.7 pg (27.0-33.0); Mean Corpuscular Volume 93.4 fL (80.0-98.0); Mean Platelet Volume 10.4 fL (9.4-12.3); Monocytes Absolute Auto 0.6 X10*3/uL (0.1-1.2); Neutrophils Absolute Auto 4.8 x10*3/uL (2.0-8.3); Neutrophils Percent Auto 47.3 % (45-73); Platelet Count 279 X10*3/uL (160-400); Red Blood Count 4.23 X10*6/uL (4.20-5.50); Red Cell Distribution Width 11.3 % (11.0-16.0)
[2022-08-09] MEDS: Ondansetron ODT 4 MG TAB.RAPDIS TRANSLINGU (23:11)
[2022-08-09 23:23] LABS: Alanine Aminotransferase 20 U/L (0-31); Albumin Level 4.3 g/dL (3.5-5.0); Alkaline Phosphatase 64 U/L (39-117); Anion Gap 11 (12-20); Aspartate Amino Transferase 16 U/L (5-31); Bilirubin Total 0.4 mg/dL (0.0-1.0); Blood Urea Nitrogen 11 mg/dL (9-16); Calcium 9.5 mg/dL (8.4-10.2); Carbon Dioxide 29 mmol/L (22-29); Chloride 103 mmol/L (96-108); Estimated Glomerular Filt Rate > 60; Glucose Random 114 mg/dL (60-115); Lipase 24 U/L (8-78); Potassium 4.1 mmol/L (3.3-5.1); Sodium 139 mmol/L (135-145); Total Protein 6.7 g/dL (6.5-8.0)
[2022-08-09 23:48] LABS: Influenza A PCR NEGATIVE (Negative); Influenza B PCR NEGATIVE (Negative); Resp Syncy Virus RNA Qual PCR NEGATIVE (Negative); SARS COV2 PCR INHOUSE NEGATIVE (Negative)
[2022-08-10 00:39] VITALS: BP 124/89; PULSE 67; RESP 18; TEMP 36.6; O2SAT 99
[2022-08-10 02:22] VITALS: BP 113/61; PULSE 62; RESP 16; TEMP 36.6; O2SAT 96
[2022-08-10 04:15] VITALS: BP 107/56; PULSE 89; RESP 18; TEMP 36.6; O2SAT 97
[2022-08-10] MEDS: 0.9 % Sodium Chloride 1,000 ML 999 ML IV (05:28)
[2022-08-10] MEDS: ondansetron HCL 4 MG/2 ML VIAL IVPUSH (05:28)
[2022-08-10] MEDS: Famotidine/PF 20 MG/2 ML VIAL IVPUSH (05:28)
[2022-08-10] MEDS: Magnesium Hydrox/Alum Hydrox 30 ML ORAL.SUSP PO (05:28)
[2022-08-10 06:25] VITALS: BP 101/48; PULSE 70; RESP 18; TEMP 36.5; O2SAT 96
== END 2022-08-10 06:57 | disposition home or self-care (01) ==
PROVIDERS: Physician Assistant; Emergency Provider Emergency Medicine; PCP Internal Medicine
DX: K29.70 Gastritis, unspecified, without bleeding (principal); R11.2 Nausea with vomiting, unspecified; Z20.822 Contact with and (suspected) exposure to COVID-19; Z79.899 Other long term (current) drug therapy
CPT/HCPCS: 0241U; 80053; 83690; 85025; 96361; 96374; 96375; 99284; J2405

== ENCOUNTER 2023-10-11 13:01 | Outpatient (AMB) | payer OTHER, SELFPAY ==
[2023-10-11 13:02] VITALS: BP 110/64; PULSE 65; O2SAT 98; BMI 31.9
--- NOTE | 2023-10-11 13:02 | A.OFFPC_ITS ---
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 Credit Review Officer: Not Required per policy Accompanied by: Self / Same As Patient Allergies Motrin Allergy (Unknown, Uncoded 10/11/23 13:02) stomach upset Medication List - Last Reconciled 10/12/23 by Sung Shen MD leg brace (Knee Support Brace) genumed [id number] lorazepam 1 mg PO BID PRN naproxen (Naprosyn) 500 mg PO BID naproxen 500 mg PO BID 30 days omeprazole magnesium (Prilosec OTC) 20 mg PO BID ondansetron 4 mg PO Q8H PRN ondansetron HCl 4 mg PO Q8-12H PRN oxycodone-acetaminophen 5-325 mg (Percocet) 1 tab PO TID PRN quetiapine 25 mg PO BEDTIME tizanidine 4 mg PO TID tramadol 50 mg PO DAILY PRN tramadol 50 mg PO Q8H PRN Tobacco use date assessed: 10/11/23 Dental Screening Dental Screen Date: 10/11/23 Did you have a dental visit in the last 12 months?: Yes Did you have a dental problem in the last 6 months where you did not have access to dental care?: No Was dental information given to patient?: Patient has dentist HPI Annual PE HPI Details depression anxiety and multiple joint pains [facility] Medical History (Updated 10/12/23 @ 10:10 by Sung Shen MD) Anxiety No known health problems Surgical History History of tubal ligation Family History Father Hypertension Mother Diabetes Maternal Grandmother Breast cancer Daughter In good health Son In good health Sister In good health Sister In good health Brother In good health Social History Alcohol intake: unknown Patient Tobacco Use Status: Never used Tobacco Current occupational status: unemployed Cognitive needs: No Hearing needs: No Vision needs: No Questionnaire PHQ-9 Over the last 2 weeks, how often have you been bothered by any of the following problems? 1. Little interest or pleasure in doing things: not at all 2. Feeling down, depressed, or hopeless: not at all 3. Trouble falling or staying asleep, or sleeping too much: not at all 4. Feeling tired or having little energy: not at all 5. Poor appetite or overeating: not at all 6. Feeling bad about yourself - or that you are a failure or have let yourself or your family down: not at all 7. Trouble concentrating on things, such as reading the newspaper or watching television: not at all 8. Moving or speaking so slowly that other people could have noticed. Or the opposite - being so fidgety or restless that you have been moving around a lot more than usual: not at all 9. Thoughts that you would be better off or of hurting yourself in some way: not at all Total score: 0 Depression Screening Interpretation: Negative Depression Screening Done: Yes 55439 - PHQ-9 Billing: Yes Source: Developed by Drs. Jace Crockett, Catalina Coates, George Meier and colleagues, with an educational pedro from [employer]. Thrive Questionnaire Date Thrive assessed: 10/11/23 I am a: Patient What is your living situation today?: I have a steady place to live Within the past 12 months, did the food you bought not last and you didn't have the money to get more?: Never true Within the past 12 months, did you worry whether your food would run out before you got money to buy more?: Never true Do you have trouble paying for medicines?: No Do you have trouble getting transportation to medical appointments?: No Do you have trouble paying your heating and electricity bill?: No Do you have trouble taking care of your child, family member or friend?: No Do you have trouble with day-to-day activities such as bathing, preparing meals, shopping, managing finances, etc.?: No Are you currently unemployed and looking for a job?: No Are you interested in more education?: No Please select the resources that you would like help with: None THRIVE Score: 0 AUDIT C Alcohol Use Questionnaire (AUDIT-C) 1. How often do you have a drink containing alcohol?: Never Total Score: 0 MIGUEL-7 AMB Questionnaire MIGUEL-7 Date MIGUEL - 7 assessed: 10/11/23 Feeling nervous, anxious, or on edge: 0 = Not at all Not being able to stop or control worryin = Not at all Worrying too much about different things: 0 = Not at all Trouble relaxin = Not at all Being so restless that it is hard to sit still: 0 = Not at all Becoming easily annoyed or irritable: 0 = Not at all Feeling afraid as if something awful might happen: 0 = Not at all Total MIGUEL-7 score (0-4 normal; 5-9 mild; 10-14 moderate; 15-21 severe): 0 Source: Developed by Drs. Jace Crockett, Catalina Coates, George Meier and colleagues, with an educational pedro from [employer]. MIGUEL-7 Assessment Billing MIGUEL-7 Assessment Tool: MIGUEL-7 Assessment 86552 Review of Systems Const Denies chills, Denies fatigue, Denies headache(s) and Denies weight loss Eyes Denies change in vision, Denies diplopia and Denies eye pain ENT Denies vertigo, Denies dizziness, Denies headache(s) and Denies nasal discharge Card Denies chest pain, Denies rapid heart rate and Denies dyspnea on exertion Resp Denies chest congestion, Denies cough, Denies pain with cough and Denies dyspnea on exertion GI Denies abdominal pain, Denies hematochezia and Denies change in bowel habits Musc Denies myalgias, Denies arthralgias and Denies joint swelling Skin/Breast Denies lesions and Denies unusual bruising Neuro Denies vertigo, Denies dizziness, Denies headache(s) and Denies focal weakness Endo Denies fatigue Physical exam (Primary Care) Vital Signs: Last Vital Signs Pulse 65 10/11/23 13:02 BP 110/64 10/11/23 13:02 Pulse Ox 98 10/11/23 13:02 Oxygen Delivery Method Room Air 10/11/23 13:02 BMI result Body Mass Index 31.9 Tobacco/Smoking Status: Tobacco use Status Tobacco use date assessed 10/11/23 10/11/23 13:07 Patient Tobacco Use Status Never used Tobacco 10/11/23 13:07 PHQ-9: PHQ-9 Score PHQ-9: Total score 0 10/11/23 13:21 Depression Screening Interpretation: Negative Thrive Assessment: Date of Thrive Assessment Date Thrive assessed 10/11/23 10/11/23 13:07 Const General: cooperative, healthy appearing and no acute distress Orientation/consciousness: oriented to person, oriented to place and oriented to time HENMT Head: Yes normal to inspection, Yes normocephalic and Yes atraumatic Mouth: Normal oral and palatal mucosa present and tongue normal Throat: Yes posterior oropharynx normal and Yes uvula midline Eyes General: appearance normal, both eyes and all related structures Neck Neck: Yes normal visual inspection, Yes full ROM and Yes no lymphadenopathy Thyroid: Thyroid normal Carotids: normal carotid upstroke Chest Chest palpation & inspection: normal inspection of the chest Resp Effort & Inspection: normal respiratory effort and able to speak in complete sentences Auscultation: clear to auscultation bilaterally Cardio Jugular venous distension: no JVD Palpation: normal PMI Rate: regular rate Rhythm: regular rhythm Heart sounds: S1 normal heart sound present and S2 normal heart sound present GI Inspection: Yes normal to inspection Palpation (GI): Soft to palpation and No hepatosplenomegaly present Auscultation: normal bowel sounds General: Yes no CVA tenderness Back/Spine/Pelvis Back: no CVA tenderness Skin General skin exam: no rashes or lesions noted Neuro General: oriented to person, oriented to place and oriented to time Extrem General: Yes normal to inspection and Yes full ROM Assessment and Plan Assessment & Plan (1) Physical exam: Code(s): Z00.00 - Encounter for general adult medical examination without abnormal findings Plan: labs and xr (2) Anxiety: Code(s): F41.9 - Anxiety disorder, unspecified Plan: current rx Orders: Orders Thyroid Stimulating Hormone 10/11/23 E03.9 - Hypothyroidism, unspecified MM tomosynthesis screen imp BI 10/11/23 Z12.31 - Encounter for screening mammogram for malignant neoplasm of breast XR shoulder RT min 2V 10/11/23 M25.519 - Pain in unspecified shoulder XR thoracic spine 2V 10/11/23 M54.9 - Dorsalgia, unspecified Lipid Panel 10/11/23 E78.5 - Hyperlipidemia, unspecified Complete Blood Count Auto Diff 10/11/23 D64.9 - Anemia, unspecified Comprehensive [place]. Panel Fast 10/11/23 N28.9 - Disorder of kidney and ureter, unspecified XR lumbar spine 2-3V 10/11/23 M54.9 - Dorsalgia, unspecified Coding Level of Care Code New Pt Prev Care 40-64y(00823) Diagnoses Physical exam Z00.00 Anxiety F41.9 Additional Codes MIGUEL-7 Assessment Billing - MIGUEL-7 Assessment Tool: MIGUEL-7 Assessment 47837 ([id number])
== END 2023-10-11 13:27 | disposition home or self-care (01) ==
PROVIDERS: PCP Internal Medicine; Visit Provider Internal Medicine
DX: Z00.00 Encounter for general adult medical examination without abnormal findings (principal); F41.9 Anxiety disorder, unspecified
CPT/HCPCS: 99396

== ENCOUNTER 2023-10-13 11:19 | Outpatient (REF) | payer OTHER, SELFPAY ==
[2023-10-13 12:31] LABS: MANUAL DIFF FLAG NO
[2023-10-13 13:50] LABS: Basophils Percent Auto 0.5 % (0-2); Eosinophils Absolute Auto 0.2 X10*3/uL (0.0-0.4); Eosinophils Percent Auto 1.9 % (0-4); Hematocrit 40.6 % (37.0-47.0); Hemoglobin 13.5 g/dl (12.0-16.0); Imm Gran Abs Auto 0.02 X10*3/uL (0.00-0.03); Imm Gran Pct Auto 0.2 % (0.0-0.4); Lymphocytes Absolute Auto 3.7 X10*3/uL (1.2-4.9); Lymphocytes Percent Auto 46.7 % (20-40); Mean Corpuscular HGB Conc 33.3 g/dl (31.0-35.0); Mean Corpuscular Hemoglobin 31.6 pg (27.0-33.0); Mean Corpuscular Volume 95.1 fL (80.0-98.0); Mean Platelet Volume 10.5 fL (9.4-12.3); Monocytes Absolute Auto 0.3 X10*3/uL (0.1-1.2); Monocytes Percent Auto 4.2 % (2-11); Neutrophils Absolute Auto 3.7 x10*3/uL (2.0-8.3); Neutrophils Percent Auto 46.5 % (45-73); Platelet Count 373 X10*3/uL (160-400); Red Blood Count 4.27 X10*6/uL (4.20-5.50); Red Cell Distribution Width 11.7 % (11.0-16.0)
[2023-10-13 14:45] LABS: Alanine Aminotransferase 14 U/L (0-31); Albumin Level 4.4 g/dL (3.5-5.0); Alkaline Phosphatase 73 U/L (39-117); Anion Gap 11 (12-20); Aspartate Amino Transferase 13 U/L (5-31); Bilirubin Total 0.5 mg/dL (0.0-1.0); Blood Urea Nitrogen 8 mg/dL (9-16); Calcium 9.5 mg/dL (8.4-10.2); Carbon Dioxide 30 mmol/L (22-29); Chloride 104 mmol/L (96-108); Cholesterol 137 mg/dL (<200); Estimated Glomerular Filt Rate > 60; Glucose Fasting 89 mg/dL (60-99); HDL Cholesterol 40 mg/dL (>40); LDL Cholesterol Calculated 79 mg/dL (<100); Potassium 4.4 mmol/L (3.3-5.1); Sodium 141 mmol/L (135-145); Total Protein 7.3 g/dL (6.5-8.0); Triglycerides 93 mg/dL (<150)
[2023-10-13 14:47] LABS: Thyroid Stimulating Hormone 1.02 uIU/mL (0.32-4.0)
== END 2023-10-13 11:20 | disposition home or self-care (01) ==
LOC: HO.LAB 11:19
PROVIDERS: PCP Internal Medicine; Visit Provider Internal Medicine
DX: E78.5 Hyperlipidemia, unspecified (principal); D64.9 Anemia, unspecified; E03.9 Hypothyroidism, unspecified; N28.9 Disorder of kidney and ureter, unspecified
CPT/HCPCS: 36415; 80053; 80061; 84443; 85025

== ENCOUNTER 2023-10-30 11:06 | Outpatient (REF) | payer OTHER, SELFPAY | END 2023-10-30 11:07 | disposition home or self-care (01) | LOC: HO.XRAY 11:06 | PROVIDERS: PCP Internal Medicine; Visit Provider Internal Medicine | DX: Z13.89 Encounter for screening for other disorder (principal) ==

== ENCOUNTER 2023-12-06 13:32 | Outpatient (REF) | payer OTHER, SELFPAY ==
--- NOTE | ~2023-12-06 | XR_ITS ---
EXAMINATION: XR RIGHT SHOULDER XR THORACIC SPINE XR LUMBAR SPINE CLINICAL INFORMATION: Pain in unspecified shoulder, dorsalia unspecified. COMPARISON: MRI lumbar spine 01/18/2020, chest radiograph 06/14/2019, sacroiliac joint March 05, 2019, sacrum and coccyx and lumbar spine 01/27/2019. TECHNIQUE: 4 views of the right shoulder. 2 views of the thoracic spine. 3 views of the lumbar spine. FINDINGS: THORACIC SPINE: Mild multilevel degenerative changes with hypertrophic change in the [id number] thoracic spine. Thoracic vertebral body heights are preserved. LUMBAR SPINE: Bilateral sacroiliac joints are symmetric. Zipper-like device overlies the right hip. Mild facet arthritis in the lower lumbar spine. Lumbar vertebral body heights are preserved. Mild multilevel lumbar spondylosis with mild loss of disc space height at L3-L4. RIGHT SHOULDER: Mild degenerative changes in the acromioclavicular joint. Glenohumeral alignment preserved. Amorphous calcifications in the soft tissues along the posterior aspect of the humeral head suggests calcific tendinosis/tendinitis. Incidental note of segmented right rib presumably at the level of C7, incompletely imaged. Dedicated images of the cervicothoracic spine recommended for further evaluation. XR/XR thoracic spine 2V IMPRESSION: 1. Mild degenerative changes in the thoracic spine. 2. Mild multilevel lumbar spondylosis with mild loss of disc space height at L3-L4. 3. Mild degenerative changes in the right acromioclavicular joint. 4. Amorphous calcifications in the soft tissues along the posterior aspect of the humeral head suggests calcific tendinosis/tendinitis. 5. Incidental note of segmented right rib presumably at the level of C7, incompletely imaged. Dedicated images of the cervicothoracic spine recommended for further evaluation.
--- NOTE | ~2023-12-06 | XR_ITS ---
EXAMINATION: XR RIGHT SHOULDER XR THORACIC SPINE XR LUMBAR SPINE CLINICAL INFORMATION: Pain in unspecified shoulder, dorsalia unspecified. COMPARISON: MRI lumbar spine 01/18/2020, chest radiograph 06/14/2019, sacroiliac joint March 05, 2019, sacrum and coccyx and lumbar spine 01/27/2019. TECHNIQUE: 4 views of the right shoulder. 2 views of the thoracic spine. 3 views of the lumbar spine. FINDINGS: THORACIC SPINE: Mild multilevel degenerative changes with hypertrophic change in the [id number]-[id number] thoracic spine. Thoracic vertebral body heights are preserved. LUMBAR SPINE: Bilateral sacroiliac joints are symmetric. Zipper-like device overlies the right hip. Mild facet arthritis in the lower lumbar spine. Lumbar vertebral body heights are preserved. Mild multilevel lumbar spondylosis with mild loss of disc space height at L3-L4. RIGHT SHOULDER: Mild degenerative changes in the acromioclavicular joint. Glenohumeral alignment preserved. Amorphous calcifications in the soft tissues along the posterior aspect of the humeral head suggests calcific tendinosis/tendinitis. Incidental note of segmented right rib presumably at the level of C7, incompletely imaged. Dedicated images of the cervicothoracic spine recommended for further evaluation. XR/XR shoulder RT min 2V IMPRESSION: 1. Mild degenerative changes in the thoracic spine. 2. Mild multilevel lumbar spondylosis with mild loss of disc space height at L3-L4. 3. Mild degenerative changes in the right acromioclavicular joint. 4. Amorphous calcifications in the soft tissues along the posterior aspect of the humeral head suggests calcific tendinosis/tendinitis. 5. Incidental note of segmented right rib presumably at the level of C7, incompletely imaged. Dedicated images of the cervicothoracic spine recommended for further evaluation.
--- NOTE | ~2023-12-06 | XR_ITS ---
EXAMINATION: XR RIGHT SHOULDER XR THORACIC SPINE XR LUMBAR SPINE CLINICAL INFORMATION: Pain in unspecified shoulder, dorsalia unspecified. COMPARISON: MRI lumbar spine 01/18/2020, chest radiograph 06/14/2019, sacroiliac joint March 05, 2019, sacrum and coccyx and lumbar spine 01/27/2019. TECHNIQUE: 4 views of the right shoulder. 2 views of the thoracic spine. 3 views of the lumbar spine. FINDINGS: THORACIC SPINE: Mild multilevel degenerative changes with hypertrophic change in the ifa-[id number] thoracic spine. Thoracic vertebral body heights are preserved. LUMBAR SPINE: Bilateral sacroiliac joints are symmetric. Zipper-like device overlies the right hip. Mild facet arthritis in the lower lumbar spine. Lumbar vertebral body heights are preserved. Mild multilevel lumbar spondylosis with mild loss of disc space height at L3-L4. RIGHT SHOULDER: Mild degenerative changes in the acromioclavicular joint. Glenohumeral alignment preserved. Amorphous calcifications in the soft tissues along the posterior aspect of the humeral head suggests calcific tendinosis/tendinitis. Incidental note of segmented right rib presumably at the level of C7, incompletely imaged. Dedicated images of the cervicothoracic spine recommended for further evaluation. XR/XR lumbar spine 2-3V IMPRESSION: 1. Mild degenerative changes in the thoracic spine. 2. Mild multilevel lumbar spondylosis with mild loss of disc space height at L3-L4. 3. Mild degenerative changes in the right acromioclavicular joint. 4. Amorphous calcifications in the soft tissues along the posterior aspect of the humeral head suggests calcific tendinosis/tendinitis. 5. Incidental note of segmented right rib presumably at the level of C7, incompletely imaged. Dedicated images of the cervicothoracic spine recommended for further evaluation.
== END 2023-12-06 13:33 | disposition home or self-care (01) ==
LOC: HO.XRAY 13:32
PROVIDERS: PCP Internal Medicine; Visit Provider Internal Medicine
DX: M54.9 Dorsalgia, unspecified (principal); M25.511 Pain in right shoulder
CPT/HCPCS: 72070; 72100; 73030

== ENCOUNTER 2024-02-09 12:59 | Inpatient (IN) | payer OTHER, SELFPAY ==
--- NOTE | 2024-02-09 | ECG_ITS ---
Test Reason : PROLONG QT Blood Pressure : / mmHG Vent. Rate : 087 BPM Atrial Rate : 087 BPM P-R Int : 134 ms QRS Dur : 080 ms QT Int : 368 ms P-R-T Axes : 062 040 035 degrees QTc Int : 442 ms Normal sinus rhythm with sinus arrhythmia Normal ECG When compared with ECG of 27-JAN-2019 05:45, No significant change was found Referred By: Angelina Hanson Electronically Signed By:ETHEL GOODWIN MD
[2024-02-09 13:01] VITALS: BP 137/92; PULSE 99; RESP 22; TEMP 36.9; O2SAT 98; BMI 31.3
--- NOTE | 2024-02-09 13:01 | ED_ITS ---
HPI - General Adult General Chief complaint: Psychiatric Symptoms Stated complaint: Private issue Time Seen by Provider: 02/09/24 13:14 Source: patient and RN notes reviewed Mode of arrival: ambulatory Limitations: no limitations History of Present Illness ED Provider: vanna BERGER narrative: Patient is a 43-year-old female with history of anxiety presenting voluntarily to the emergency department with complaint of depression, anxiety, and suicidal ideation. Reports multiple increased recent stressors, including arguments with family and displacement from housing. Attempting to jump in front of cars on the way to the emergency department. Denies homicidal ideation, auditory or visual hallucinations. MD complaint: depression, suicidal ideation Onset (ago): day(s) Treatments prior to arrival: none Related Data Home Medications ?Medication ?Instructions ?Recorded ?Confirmed tramadol 50 mg tablet 50 mg PO DAILY PRN pain 06/24/20 10/12/23 tizanidine 4 mg tablet 4 mg PO TID 07/14/20 10/12/23 Previous Rx's ?Medication ?Instructions ?Recorded oxycodone-acetaminophen 5 mg-325 1 tab PO TID PRN pain #9 tabs 07/10/20 mg tablet (Percocet) tramadol 50 mg tablet 50 mg PO Q8H PRN pain #20 tabs 07/14/20 naproxen 500 mg tablet 500 mg PO BID 30 days #60 tabs 07/16/20 leg brace (Knee Support Brace) #1 ea 07/22/20 quetiapine 25 mg tablet 25 mg PO BEDTIME #30 tabs 08/09/20 lorazepam 1 mg tablet 1 mg PO BID PRN anxiety #60 tabs 09/14/20 ondansetron 4 mg disintegrating 4 mg PO Q8H PRN nausea and 03/30/21 tablet vomiting #20 tabs naproxen 500 mg tablet (Naprosyn) 500 mg PO BID #20 tabs 07/29/21 omeprazole magnesium 20 mg 20 mg PO BID #30 tabs 08/10/22 tablet,delayed release (Prilosec OTC) ondansetron HCl 4 mg tablet 4 mg PO Q8-12H PRN nausea and 08/10/22 vomiting #7 tabs Allergies Allergy/AdvReac Type Severity Reaction Status Date / Time Motrin Allergy Mild stomach Uncoded 02/09/24 13:06 upset Review of Systems 2 Review of Systems: As per HPI Yes all other systems are reviewed and are negative Constitutional: Constitutional: Reports as per HPI [facility] Past Medical History Medical History (Updated 02/09/24 @ 14:48 by Judy Márquez NP) Anxiety No known health problems Surgical History History of tubal ligation Family History Family History Father Hypertension Mother Diabetes Maternal Grandmother Breast cancer Daughter In good health Son In good health Sister In good health Sister In good health Brother In good health Social History Social History Housing: Condominium Alcohol intake: unknown Patient Tobacco Use Status: Never used Tobacco Smoked in Last 30 Days: Yes e-Cigarette/Vaping Use: Never Used Second Hand Smoke Exposure: No Use of substances other than those prescribed or required for medical reasons: Yes Substance Use Type: Marijuana Substance Use Type Other:: Uses THC at night to help sleep Substance Use Frequency: Daily Any prior treatment program specific to substance use: No Advance Directives: No Advance Directives Information Provided: No Do you have a plan to hurt others: No Plan service: No Current occupational status: unemployed Cognitive needs: No Hearing needs: No Vision needs: No Physical Exam ED Vital Signs: Vital Signs - 24 hr 02/09/24 13:01 02/09/24 13:35 Temperature 98.5 F 98.5 F Pulse Rate 99 99 Respiratory Rate 22 H 22 H Blood Pressure 137/92 H 137/92 H Pulse Oximetry 98 98 Oxygen Delivery Method Room Air Room Air BMI result Body Mass Index 31.3 Vital signs have been reviewed and appear to be correct. Blood pressure elevated. Heart rate normal. Respiratory rate normal. Temperature normal. Oxygen saturation normal. Const General: cooperative, healthy appearing and no acute distress Orientation/consciousness: oriented to person, oriented to place, oriented to time and patient oriented x3 Limitations: no limitations HENMT Head: Yes normocephalic and Yes atraumatic Ears: external ears normal General nose exam: Normal external nose present Face and sinus: Yes face symmetric Mouth: oropharynx normal and moist mucous membranes Throat: Yes uvula midline Eyes Pupils: Equal, round and reactive pupils present Neck Neck: Yes normal visual inspection and Yes supple Resp Effort & Inspection: normal respiratory effort and able to speak in complete sentences Auscultation: clear to auscultation bilaterally Cardio Rate: regular rate Rhythm: regular rhythm Heart sounds: S1 normal heart sound present and S2 normal heart sound present GI Palpation (GI): Soft to palpation and nontender Auscultation: normoactive bowel sounds General: Yes no CVA tenderness Back/Spine/Pelvis Back: no CVA tenderness Skin General skin exam: elasticity normal and turgor normal Neuro General: oriented to person, oriented to place, oriented to time, patient oriented x3, moves all extremities, no focal motor deficits and CN's II-XI intact bilaterally Cranial nerves: Yes Equal, round and reactive pupils present Cognition (Neuro): normal cognition Extrem General: Yes full ROM, Yes no pedal edema and Yes no calf tenderness Psych Appearance: grossly normal Mental Status: mental status grossly normal Speech and movement: Pressured speech present Affect: Anxious affect present Attitude: cooperative Thought process: Normal thought process present Thought content: Suicidality present, no homicidality, no hallucinations and Depressive thoughts present Insight: Fair insight present (Psych) Judgement: Fair judgement present (Psych) Course Course Course Narrative: RME performed by Nathalie Dobbs PA-C. Patient is a 43 year old assigned female at presenting to the emergency department with suicidal ideation. Patient states she feels as though she wants to hurt herself but came here to avoid doing that. Detailed physical exam and review of systems are deferred to the semiconductor wafer inspector. Labs ordered. wardrobe manager made aware. Medical Decision Making Medical Decision Making [facility] Narrative: Patient is a 43-year-old female with history of anxiety presenting voluntarily to the emergency department with complaint of depression, anxiety, and suicidal ideation. On exam patient is awake, A+Ox3, VS WNL, afebrile, normal neurological exam without focal deficits, physical exam findings as above. Given reported symptoms and physical exam findings, initial differential includes anxiety, depression, suicidal ideation. Labs grossly within normal limits. UA without evidence of infection. Urine drug screen positive for opiates, oxycodone, cocaine, THC. Per Belle from CARE team, patient to be inpatient psych bed search for SI. Patient placed on physician observation at 14:45 pending inpatient bed placement. Differential Diagnosis Differential Diagnoses: The differential diagnosis associated with the presentation includes As per MDM Admission/Observation Consideration of admission/observation: Escalation of care including admission/observation considered Consult Healthcare Provider Management of the patient was discussed with: Behavioral Health Provider Lab Data [facility] Lab Attestation statement: I reviewed the patient's lab results. As per [facility] 02/09/24 13:45 02/09/24 13:45 Labs: Lab Results 02/09/24 02/09/24 Range/Units 13:33 13:45 WBC 12.9 H (4.8-10.8) X10*3/uL RBC 3.93 L (4.20-5.50) X10*6/uL Hgb 12.8 (12.0-16.0) g/dl Hct 36.3 L (37.0-47.0) % MCV 92.4 (80.0-98.0) fL MCH 32.6 (27.0-33.0) pg MCHC 35.3 H (31.0-35.0) g/dl RDW 12.2 (11.0-16.0) % Plt Count 341 (160-400) X10*3/uL MPV 9.9 (9.4-12.3) fL Immature Gran % (Auto) 0.2 (0.0-0.4) % Neut % (Auto) 57.6 (45-73) % Lymph % (Auto) 30.5 (20-40) % [place] % (Auto) 6.5 (2-11) % Eos % (Auto) 4.8 H (0-4) % Baso % (Auto) 0.4 (0-2) % Lymph # (Auto) 3.9 (1.2-4.9) X10*3/uL [place] # (Auto) 0.8 (0.1-1.2) X10*3/uL Eos # (Auto) 0.6 H (0.0-0.4) X10*3/uL Baso # (Auto) 0.1 (0.0-0.2) X10*3/uL Abs Immat Gran (auto) 0.03 (0.00-0.03) X10*3/uL Absolute Neuts (auto) 7.4 (2.0-8.3) x10*3/uL Absolute Nucleated RBC 0.000 (0.0-0.012) X10*3/uL Nucleated RBC % (auto) 0.0 (0.0-0.2) /100WBC Sodium 135 (135-145) mmol/L Potassium 3.5 D (3.3-5.1) mmol/L Chloride 103 (96-108) mmol/L Carbon Dioxide 24 (22-29) mmol/L Anion Gap 12 (12-20) BUN 14 (9-16) mg/dL Creatinine 0.68 (0.5-1.4) mg/dL Estim Creat Clear Calc 92.0 Estimated GFR > 60 Random Glucose 101 (60-115) mg/dL Calcium 9.4 (8.4-10.2) mg/dL Total Bilirubin 0.4 (0.0-1.0) mg/dL AST 14 (5-31) U/L ALT 15 (0-31) U/L Alkaline Phosphatase 71 (39-117) U/L Total Protein 7.3 (6.5-8.0) g/dL Albumin 4.3 (3.5-5.0) g/dL Urine Color Yellow Urine Appearance Cloudy Urine pH 6.5 (5.0-9.0) Ur Specific [place] 1.025 (1.005-1.025) Urine Protein Negative (Neg-Trace) mg/dL Urine Glucose (UA) Negative (Negative) mg/dL Urine Ketones Negative (Negative) mg/dL Urine Blood Negative (Negative) Urine Nitrite Negative (Negative) Ur Leukocyte Esterase Large (3+) H (Negative) Urine RBC 0-2 (0-2) /HPF Urine WBC 6-10 (0-5) /HPF Ur Squamous Epith Cells 6-10 (0-2) /HPF Urine Bacteria 2+ (None Seen) Hyaline Casts 0-2 (0-2) /LPF Urine Test NEGATIVE (NEGATIVE) Salicylates < 5.0 L (15-30) mg/dL Urine Opiates Screen POSITIVE H (Not Detect) Ur Buprenorphine Scrn Not Detected (Not Detect) ng/mL Ur Oxycodone Screen Positive H (Not Detect) ng/mL Urine Methadone Screen Not Detected (Not Detect) ng/mL Urine Fentanyl Screen Not Detected (Not Detect) Acetaminophen < 3 (<30) mcg/mL Ur Barbiturates Screen Not Detected (Not Detect) Ur Phencyclidine Scrn Not Detected (Not Detect) Ur Amphetamines Screen Not Detected (Not Detect) U Benzodiazepines Scrn Not Detected (Not Detect) Urine Cocaine Screen POSITIVE H (Not Detect) U Marijuana (THC) Screen POSITIVE H (Not Detect) Ethyl Alcohol < 10 mg/dL External Record Review External record reviewed: Inpatient record, Office record and Outpatient record Discharge Plan Discharge Clinical Impression: Depression, Acute anxiety, Suicidal ideation Patient Disposition: Still a Patient Prescriptions: No Action tramadol 50 mg tablet 50 mg PO DAILY PRN (Reason: pain) quetiapine 25 mg tablet 25 mg PO BEDTIME Qty: 30 0RF oxycodone-acetaminophen [Percocet] 5-325 mg tablet 1 tab PO TID PRN (Reason: pain) Qty: 9 0RF Rx Instructions: side effect is drowsiness. Do not take at work or while driving. ondansetron 4 mg tablet,disintegrating 4 mg PO Q8H PRN (Reason: nausea and vomiting) Qty: 20 0RF naproxen [Naprosyn] 500 mg tablet 500 mg PO BID Qty: 20 0RF ondansetron HCl 4 mg tablet 4 mg PO Q8-12H PRN (Reason: nausea and vomiting) Qty: 7 0RF omeprazole magnesium [Prilosec OTC] 20 mg tablet,delayed release (DR/EC) 20 mg PO BID Qty: 30 0RF tizanidine 4 mg tablet 4 mg PO TID tramadol 50 mg tablet 50 mg PO Q8H PRN (Reason: pain) Qty: 20 0RF lorazepam 1 mg tablet 1 mg PO BID PRN (Reason: anxiety) Qty: 60 0RF naproxen 500 mg tablet 500 mg PO BID 30 Days Qty: 60 3RF (DME) Knee Support Brace Misc See Rx Instructions .MEDSUPPLY Qty: 1 0RF Rx Instructions: zeinab [id number] Interventions: [place]-Suicide Risk Severity Scale Last Done: 02/09/24 13:37 Print Language: Azeri
[2024-02-09 13:35] VITALS: BP 137/92; PULSE 99; RESP 22; TEMP 36.9; O2SAT 98
--- NOTE | 2024-02-09 13:39 | PC.NURSE ---
Patient self[place]present[place] to [facility] [place] a [place] basis due to suicidal ideations, no plan. Patient reports significant life stressors and issues with family but does not elaborate. Patient is very tearful and crying during assessment but is cooperative with staff. Patient endorses smoking 5 cigarettes per day and using marijuana at night to help her sleep.
[2024-02-09 13:45] LABS: Appearance Urine Cloudy; Color Urine Yellow; Glucose Urine UA Negative (Negative); Leukocyte Esterase Urine Large (3+) (Negative); Nitrite Urine Negative (Negative); PH 6.5 (5.0-9.0); Specific Gravity - Urine 1.025 (1.005-1.025); UMIC TRIGGER UA YES; UPreg QC Valid YES; Urine Blood Negative (Negative); Urine Ketones Negative (Negative); Urine Pregnancy NEGATIVE (NEGATIVE); Urine Protein Negative (Neg-Trace)
[2024-02-09 13:49] LABS: MANUAL DIFF FLAG NO
[2024-02-09 13:50] LABS: Basophils Absolute Auto 0.1 X10*3/uL (0.0-0.2); Basophils Percent Auto 0.4 % (0-2); Eosinophils Absolute Auto 0.6 X10*3/uL (0.0-0.4); Eosinophils Percent Auto 4.8 % (0-4); Hematocrit 36.3 % (37.0-47.0); Hemoglobin 12.8 g/dl (12.0-16.0); Imm Gran Abs Auto 0.03 X10*3/uL (0.00-0.03); Imm Gran Pct Auto 0.2 % (0.0-0.4); Lymphocytes Absolute Auto 3.9 X10*3/uL (1.2-4.9); Lymphocytes Percent Auto 30.5 % (20-40); Mean Corpuscular HGB Conc 35.3 g/dl (31.0-35.0); Mean Corpuscular Hemoglobin 32.6 pg (27.0-33.0); Mean Corpuscular Volume 92.4 fL (80.0-98.0); Mean Platelet Volume 9.9 fL (9.4-12.3); Monocytes Absolute Auto 0.8 X10*3/uL (0.1-1.2); Monocytes Percent Auto 6.5 % (2-11); Neutrophils Absolute Auto 7.4 x10*3/uL (2.0-8.3); Neutrophils Percent Auto 57.6 % (45-73); Platelet Count 341 X10*3/uL (160-400); Red Blood Count 3.93 X10*6/uL (4.20-5.50); Red Cell Distribution Width 12.2 % (11.0-16.0); White Blood Count 12.9 X10*3/uL (4.8-10.8)
[2024-02-09 13:58] LABS: Bacteria Urine 2+ (None Seen); Hyaline Casts Urine 0-2 /LPF (0-2); RBC Urine 0-2 /HPF (0-2)
[2024-02-09 14:00] LABS: Amphetamine Screen Urine Not Detected (Not Detect); Barbiturates, Urine Not Detected (Not Detect); Benzodiazepines Screen Urine Not Detected (Not Detect); Opiate Screen Urine POSITIVE (Not Detect); Phencyclidine Screen Urine Not Detected (Not Detect)
[2024-02-09 14:01] LABS: Buprenorphine Scr Not Detected (Not Detect); Cannabinoid Screen Urine POSITIVE (Not Detect); Cocaine Screen Urine POSITIVE (Not Detect); Fentanyl, urine Not Detected (Not Detect); Methadone Screen, Urine Not Detected (Not Detect); Oxycodone Screen Urine Positive (Not Detect)
[2024-02-09 14:08] LABS: Acetaminophen LAB < 3 mcg/mL (<30); Alanine Aminotransferase 15 U/L (0-31); Albumin Level 4.3 g/dL (3.5-5.0); Alkaline Phosphatase 71 U/L (39-117); Anion Gap 12 (12-20); Aspartate Amino Transferase 14 U/L (5-31); Bilirubin Total 0.4 mg/dL (0.0-1.0); Blood Urea Nitrogen 14 mg/dL (9-16); Calcium 9.4 mg/dL (8.4-10.2); Carbon Dioxide 24 mmol/L (22-29); Chloride 103 mmol/L (96-108); Estimated Glomerular Filt Rate > 60; Ethanol < 10 mg/dL; Glucose Random 101 mg/dL (60-115); Potassium 3.5 mmol/L (3.3-5.1); Salicylate < 5.0 mg/dL (15-30); Sodium 135 mmol/L (135-145); Total Protein 7.3 g/dL (6.5-8.0)
[2024-02-09] MEDS: Acetaminophen 325 MG TABLET 975 MG PO (14:45)
[2024-02-09] MEDS: LORazepam 1 MG TABLET 2 MG PO (14:45)
--- NOTE | 2024-02-09 17:49 | PC.NURSE ---
Home Medications Per patient, she does not take medications at home.
[2024-02-09 21:59] VITALS: BMI 30.5
[2024-02-09 22:00] VITALS: BP 122/74; PULSE 76; RESP 20; TEMP 37.1; O2SAT 97
--- NOTE | 2024-02-10 00:42 | PC.ADMIT ---
Fadia is a 43 yr old female, arrived to @ 22:00, from [facility]. She is admitted to the unit in a Conditional Voluntary. Fadia self-presented at the ED, feeling suicidal. She reports attempting to jump in from of cars while walking to the hospital. Fadia is pleasant but very tearful. Her affect is broad. Her participation with assessment was limited due to feeling so tired and crying. She endorses anxiety & depression. A feeling of hopelessness, after troubles with her son, is what led her to suicidal feelings. She'd returned to the [place] after her mother in [place]. She had been there caring for her mom. She and her young daughter were living with her adult son. After conflict over not helping enough her son kicked her out and she's been staying with a friend. Fadia feels overwhelmed and hopeless about how to care for her family. She came here because she needs to get help . Pt admits to daily use of marijuana for sleep, denies other drug use, however tox screen was also positive for opiates & cocaine. Fadia was cooperative with admission process, skin check performed & unremarkable. Placed on 15min safety checks.
[2024-02-10] MEDS: traZODone HCL 50 MG TABLET PO ×2 (02:37→20:40)
[2024-02-10] MEDS: Acetaminophen 325 MG TABLET 650 MG PO ×3 (02:37→18:53)
[2024-02-10 07:57] LABS: Alanine Aminotransferase 22 U/L (0-31); Albumin Level 4.1 g/dL (3.5-5.0); Alkaline Phosphatase 82 U/L (39-117); Anion Gap 11 (12-20); Aspartate Amino Transferase 24 U/L (5-31); Blood Urea Nitrogen 15 mg/dL (9-16); Calcium 9.8 mg/dL (8.4-10.2); Carbon Dioxide 24 mmol/L (22-29); Chloride 108 mmol/L (96-108); Cholesterol 153 mg/dL (<200); Creatinine Clr Calc Pharmacy 77.1; Estimated Glomerular Filt Rate > 60; Glucose Fasting 118 mg/dL (60-99); HDL Cholesterol 44 mg/dL (>40); LDL Cholesterol Calculated 81 mg/dL (<100); Potassium 4.4 mmol/L (3.3-5.1); Sodium 139 mmol/L (135-145); Total Protein 7.3 g/dL (6.5-8.0); Triglycerides 144 mg/dL (<150)
[2024-02-10 08:00] VITALS: BP 112/70; PULSE 83; RESP 18; TEMP 36.8; O2SAT 99
[2024-02-10 08:15] LABS: Bilirubin Total 0.4 mg/dL (0.0-1.0)
[2024-02-10] MEDS: hydrOXYzine HCL 25 MG TABLET PO ×2 (09:09→18:53)
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
[2024-02-10] MEDS: DULoxetine HCl 20 MG CAPSULE.DR PO (11:28)
[2024-02-10 20:00] VITALS: BP 118/83; PULSE 95; RESP 18; TEMP 36.4; O2SAT 97
[2024-02-11 08:00] VITALS: BP 115/56; PULSE 61; RESP 16; TEMP 36.5; O2SAT 98
[2024-02-11] MEDS: DULoxetine HCl 30 MG CAPSULE.DR PO (08:37)
[2024-02-11] MEDS: Acetaminophen 325 MG TABLET 650 MG PO ×2 (08:40→21:13)
[2024-02-11] MEDS: hydrOXYzine HCL 25 MG TABLET PO ×2 (08:40→19:10)
[2024-02-11] MEDS: LORazepam 1 MG TABLET PO ×2 (12:50→21:14)
--- NOTE | 2024-02-11 17:12 | P.PNPSI_ITS ---
Subjective Subjective Date of Service: 02/11/24 Reason For Visit: SI Interim History: Patient seen with reiki practitioner. Continues to feel anxious and depressed. Tearful at times. Worried that her bad thoughts are going to continue. Educated about course of treatment and expectations from medications and milieu treatment. Headaches and body aches continue. Chronic. Denies side effects with Cymbalta. Will be getting Cymbalta 40 mg starting tomorrow. Denies active SI. Medication Compliance: Yes Review of Systems Review of Systems As per HPI Yes all other systems are reviewed and are negative Constitutional: Reports as per HPI Mental Status Exam Mental Status Exam Narrative: General appearance: hospital attire. Good hygiene.? Eye contact: intermittent. Musculoskeletal: Normal muscle strength/tone, Normal gait and station, No abnormal involuntary movements like tremors, EPS or dyskinesia. No psychomotor agitation or retardation. Normal posture.??? Manner/behavior: cooperative and not guarded Speech:? Fluent, with normal rate, tone and volume. Language: No receptive or expressive language impairment? Mood: anxious Affect: Tearful, congruent to mood Thought process/associations: Linear with no flight of ideas or loose associations.?? Thought content:?No delusions or paranoia. Positive for helplessness?? Hallucinations: AH with command to hurt self. None currently. ? Suicidality/self-destructive behavior: None at this timel.? ? Homicidally/violence: none.? Reliability: good.? ? Judgment: preserved.? ? Insight: preserved Cognition: Alert and oriented to time, place and person. Attention, concentration and fund of knowledge are normal.? Impulse control and emotional regulation: preserved. Intelligence estimate: average.? Diagnostics Vital Signs (24Hr): Vital Signs - 24 hr 02/10/24 20:00 02/11/24 08:00 Temperature 97.6 F 97.7 F Pulse Rate 95 61 Respiratory Rate 18 16 Blood Pressure 118/83 115/56 L Pulse Oximetry 97 98 Oxygen Delivery Method Room Air Room Air BMI result Body Mass Index 30.5 Labs 02/09/24 13:45 02/10/24 07:16 Labs: Laboratory Results - last 48 hr 02/10/24 07:16 Sodium 139 Potassium 4.4 D Chloride 108 Carbon Dioxide 24 Anion Gap 11 L BUN 15 Creatinine 0.80 Estim Creat Clear Calc 77.1 Estimated GFR > 60 Fasting Glucose 118 H Calcium 9.8 Total Bilirubin 0.4 AST 24 ALT 22 Alkaline Phosphatase 82 Total Protein 7.3 Albumin 4.1 Triglycerides 144 Cholesterol 153 LDL Cholesterol, Calc 81 HDL Cholesterol 44 Medications Medications Current Medications Acetaminophen (Acetaminophen 325 Mg Tablet) 650 mg PO Q6H PRN PRN Reason: Headache/Pain Mild Scale (1-3) Last Admin: 02/11/24 08:40 Dose: 650 mg Al Hydroxide/Mg Hydroxide (Magnesium Hydrox/Alum Hydrox 30 Ml Oral.Susp) 30 ml PO Q6H PRN PRN Reason: Heartburn/Nausea Duloxetine HCl (Duloxetine Hcl 20 Mg Capsule.Dr) 40 mg PO DAILY GERRI Hydroxyzine HCl (Hydroxyzine Hcl 25 Mg Tablet) 25 mg PO Q6H PRN PRN Reason: Anxiety Last Admin: 02/11/24 08:40 Dose: 25 mg Lorazepam (Lorazepam 1 Mg Tablet) 1 mg PO TID PRN PRN Reason: anxiety Last Admin: 02/11/24 12:50 Dose: 1 mg Magnesium Hydroxide (Milk Of Magnesia 30 Ml Oral.Susp) 30 ml PO DAILY PRN PRN Reason: Constipation Trazodone HCl (Trazodone Hcl 50 Mg Tablet) 50 mg PO BEDTIME MRX1 PRN PRN Reason: Insomnia Last Admin: 02/10/24 20:40 Dose: 50 mg Allergies Allergies Allergy/AdvReac Type Severity Reaction Status Date / Time Motrin Allergy Mild stomach Uncoded 02/09/24 13:06 upset Assessment & Plan Assessment & Plan (1) Depression, major, severe recurrence: Status: Acute Code(s): F33.2 - Major depressive disorder, recurrent severe without psychotic features (2) Anxiety: Status: Acute Code(s): F41.9 - Anxiety disorder, unspecified Plan - Admit to inpatient psychiatry - CV - Collateral information from family and providers. - Milieu treatment and group therapy. - Medications: Start Cymbalta 20 mg and titrate to 40 mg in the next 2 days. - Social work evaluation. - Disposition planning. 02/10: Added Ativan 1 mg TID PRN anxiety not responding to Hydroxyzine. continue management and treatment plan Reason for continued inpatient stay Substantial Risk for: harm to self, inability to function and rapid decompensation Time Spent With Patient Time: Total time managing care of this patient today ____ minutes.
[2024-02-11 20:00] VITALS: BP 144/68; PULSE 74; RESP 16; TEMP 36.8; O2SAT 97
[2024-02-11] MEDS: traZODone HCL 50 MG TABLET PO (21:14)
[2024-02-12 08:00] VITALS: BP 105/55; PULSE 76; RESP 17; TEMP 37.2; O2SAT 95
[2024-02-12] MEDS: Acetaminophen 325 MG TABLET 650 MG PO ×2 (09:32→16:32)
[2024-02-12] MEDS: hydrOXYzine HCL 25 MG TABLET PO ×2 (09:33→20:34)
[2024-02-12] MEDS: DULoxetine HCl 20 MG CAPSULE.DR 40 MG PO (09:33)
--- NOTE | 2024-02-12 09:51 | P.PNPSI_ITS ---
Subjective Subjective Date of Service: 02/12/24 Reason For Visit: SI Interim History: met with patient with interpreter for the deaf; discussed with team pt shares more details about her recent overall frustration and feeling overwhelmed, helping out with her 4-year-old grandson who lost his mother about a year ago, and taking care of her own 12-year-old, while living at a friend's house and trying to secure housing. Patient says that in general, she is a pretty happy person and does not have all that much depression, but sometimes she does which she seems to say his triggered by situations. Patient reports that she has been feeling depressed and overwhelmed these past weeks. She got into an argument with her son and feeling upset left the house. Upset and walking the street, hanging out with random neighborhood people, some she knew and some she did not, crying, upset... She says someone handed her a pill and said this will make you feel better... and since feeling overwhelmed, took the pill without knowing what is it and says this must be where the cocaine in her system came from. She says under effects of that Junk...thinking no one loves me, seeing cars in street... she had suicidal thought; patient is adamant however that that is all it was, just a thought.. and denies any plans or intent; denies any hx at all of SI before and shares her deep love for her family has a constant protective factor. Patient says she is very embarrassed about what happened and that it will never happen again. She is grateful for help received at the hospital and being started on Cymbalta; complains of a mild headache which is tolerable. Patient says that her depression is mostly resolved and anxiety under control. Patient says sometimes she takes an oxycodone from her friend for chronic shoulder pain but says it is infrequent; she otherwise denies any history of drug or alcohol abuse. Patient initially wanted to dc today since she misses her family and because she has an appointment with [employer] [facility] to see an apartment. However she accepted the need to set up aftercare, therapy and to stay another day. Regarding anxiety, patient endorses feeling anxious about various things however denies that it gets in the way of daily life functioning. However she is exceedingly anxious about not being able to see her grandson tahir, giving him a hug, or seeing her daughter... Saying how much she wants to see him and how much they need her. Discussed how this intense anxiety seems to be out of proportion with which patient agreed and said it has been like this her whole life. Patient was able to process this idea and agreed that her kids also need to learn that they can be okay without her. Mental Status Exam Mental Status Exam Narrative: Pt is alert and oriented; behavior is cooperative, friendly, intermittently tearful but overall calm; patient is not in distress; dressed in casual attire with unkempt hair but adequate hygiene; mood is described as good and affect overall congruent; eye contact appropriate; Speech is normal rate, volume and prosody and not pressured; no psychomotor agitation/retardation present; thought process is organized and goal directed; Thought content is on seeing her children, tx; otherwise pertinent to relevant topics and without any delusional content, paranoid ideations or grandiosity; denies any SI/HI. There is no evidence of perceptual disturbance. Patients insight and judgment appear intact. Diagnostics Vital Signs (24Hr): Vital Signs - 24 hr 02/11/24 20:00 02/12/24 08:00 Temperature 98.2 F 98.9 F Pulse Rate 74 76 Respiratory Rate 16 17 Blood Pressure 144/68 H 105/55 L Pulse Oximetry 97 95 Oxygen Delivery Method Room Air Room Air BMI result Body Mass Index 30.5 Labs 02/09/24 13:45 02/10/24 07:16 Medications Medications Current Medications Acetaminophen (Acetaminophen 325 Mg Tablet) 650 mg PO Q6H PRN PRN Reason: Headache/Pain Mild Scale (1-3) Last Admin: 02/12/24 09:32 Dose: 650 mg Al Hydroxide/Mg Hydroxide (Magnesium Hydrox/Alum Hydrox 30 Ml Oral.Susp) 30 ml PO Q6H PRN PRN Reason: Heartburn/Nausea Duloxetine HCl (Duloxetine Hcl 20 Mg Capsule.Dr) 40 mg PO DAILY GERRI Last Admin: 02/12/24 09:33 Dose: 40 mg Hydroxyzine HCl (Hydroxyzine Hcl 25 Mg Tablet) 25 mg PO Q6H PRN PRN Reason: Anxiety Last Admin: 02/12/24 09:33 Dose: 25 mg Lorazepam (Lorazepam 1 Mg Tablet) 1 mg PO TID PRN PRN Reason: anxiety Last Admin: 02/11/24 21:14 Dose: 1 mg Magnesium Hydroxide (Milk Of Magnesia 30 Ml Oral.Susp) 30 ml PO DAILY PRN PRN Reason: Constipation Trazodone HCl (Trazodone Hcl 50 Mg Tablet) 50 mg PO BEDTIME MRX1 PRN PRN Reason: Insomnia Last Admin: 02/11/24 21:14 Dose: 50 mg Allergies Allergies Allergy/AdvReac Type Severity Reaction Status Date / Time Motrin Allergy Mild stomach Uncoded 02/09/24 13:06 upset Assessment & Plan Assessment & Plan (1) Depression, major, severe recurrence: Status: Acute Code(s): F33.2 - Major depressive disorder, recurrent severe without psychotic features (2) Anxiety: Status: Acute Code(s): F41.9 - Anxiety disorder, unspecified Assessment and Plan: rule out MIGUEL Plan - Admit to inpatient psychiatry - CV - Collateral information from family and providers. - Milieu treatment and group therapy. - Medications: Start Cymbalta 20 mg and titrate to 40 mg in the next 2 days. - Social work evaluation. - Disposition planning. 02/10: Added Ativan 1 mg TID PRN anxiety not responding to Hydroxyzine. continue management and treatment plan 02/11 pt shares more details about her recent overall frustration and feeling overwhelmed, helping out with her 4-year-old grandson who lost his mother about a year ago, and taking care of her own 12-year-old, while living at a friend's house and trying to secure housing. Patient says that in general, she is a pretty happy person and does not have all that much depression, but sometimes she does which she seems to say his triggered by situations. Patient reports that she has been feeling depressed and overwhelmed these past weeks. She got into an argument with her son and feeling upset left the house. Upset and walking the street, hanging out with random neighborhood people, some she knew and some she did not, crying, upset... She says someone handed her a pill and said this will make you feel better... and since feeling overwhelmed, took the pill without knowing what is it and says this must be where the cocaine in her system came from. She says under effects of that Junk...thinking no one loves me, seeing cars in street... she had suicidal thought; patient is adamant however that that is all it was, just a thought.. and denies any plans or intent; denies any hx at all of SI before and shares her deep love for her family has a constant protective factor. Patient says she is very embarrassed about what happened and that it will never happen again. She is grateful for help received at the hospital and being started on Cymbalta; complains of a mild headache which is tolerable. Patient says that her depression is mostly resolved and anxiety under control. Patient says sometimes she takes an oxycodone from her friend for chronic shoulder pain but says it is infrequent; she otherwise denies any history of drug or alcohol abuse. Patient initially wanted to dc today since she misses her family and because she has an appointment with [employer] program to see an apartment. However she accepted the need to set up aftercare, therapy and to stay another day. Regarding anxiety, patient endorses feeling anxious about various things however denies that it gets in the way of daily life functioning. However she is exceedingly anxious about not being able to see her grandson tahir, giving him a hug, or seeing her daughter... Saying how much she wants to see him and how much they need her. Discussed how this intense anxiety seems to be out of proportion with which patient agreed and said it has been like this her whole life. Patient was able to process this idea and agreed that her kids also need to learn that they can be okay without her. Impression/clinical reasoning: Patient has some history for depression and anxiety; she seems to say that the depression is mostly situational but obviously it can cause some overwhelming feelings. Custom Bookbinder will continue diagnosis Given by provider during her admission. Discussed her anxiety and at this time it has not clear that she meets criteria for generalized anxiety disorder so this will remain a rule out. Regarding her substance abuse, patient says she has no history of abusing drugs or alcohol. She said this is the 1st time she ever did such a reckless thing as take a pill from an unknown person and is very embarrassed about it, including that cocaine showed up in her drug screen. Custom Bookbinder discussed the dangers of taking such risks including accidentally ingesting fentanyl which patient says she is well aware and will never do again; conversation extended to intermittently using her friend's oxycodone prescription which she insists is seldom. While she may be minimizing her substance abuse, it does not seem so. Patient very much wants discharge. She has no history of suicide or self-harm and is adamant that all she ever had was the thought but no intent or plans and that she would never do such a thing. Patient self presented; he has been her several days during which time she has been in good behavioral and impulse control, engaged in treatment and appropriate with peers and staff. She is now on medication to treat both anxiety and depression which she thinks is helpful. She is also being set up with a therapist. Patient has a 3 day notice which is due. Depression has resolved , she has in a good mood and remains future oriented, eager to continue looking for housing for her and her daughter. Patient is not in imminent risk for harm to self or others and request for discharge honored. Patient educated on: diagnosis, medication risk/benefits, substance abuse, therapeutic strategies and medical condition Informed Consent: understands Reason for continued inpatient stay Substantial Risk for: stable for discharge and med/psych decompensation Time Spent With Patient Time: Total time managing care of this patient today ____ minutes.
[2024-02-12] MEDS: cloNIDine HCL 0.1 MG TABLET 0.05 MG PO (14:04)
[2024-02-12 20:00] VITALS: BP 119/72; PULSE 75; RESP 16; TEMP 36.5; O2SAT 98
[2024-02-12] MEDS: traZODone HCL 50 MG TABLET PO (20:34)
[2024-02-13 08:00] VITALS: BP 109/50; PULSE 65; RESP 20; TEMP 37.3; O2SAT 98
[2024-02-13] MEDS: DULoxetine HCl 20 MG CAPSULE.DR 40 MG PO (09:10)
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
[2024-02-13] MEDS: Naloxone HCl Nasal TAKE HOME 4 MG SPRAY 8 MG NOSTRILALT (11:17)
== END 2024-02-13 11:32 | disposition home or self-care (01) | DRG 751 ==
LOC: HO.ED 14:48 → HO.PM5 17:47
PROVIDERS: Physician Assistant Medical; Admitting Provider Psychiatry & Neurology Psychiatry; Emergency Provider Emergency Medicine; PCP Internal Medicine; Visit Provider Psychiatry & Neurology Psychiatry
DX: F33.2 Major depressive disorder, recurrent severe without psychotic features (principal); R45.851 Suicidal ideations; F41.1 Generalized anxiety disorder; Z79.899 Other long term (current) drug therapy
CPT/HCPCS: 36415; 80053; 80061; 80143; 80179; 80307; 81001; 81025; 85025; 93005; 99285; S9485

== ENCOUNTER → 2024-02-09 17:15 | Outpatient (BNV) | payer OTHER, SELFPAY | PROVIDERS: Admitting Provider Psychiatry & Neurology Psychiatry; Emergency Provider Emergency Medicine; PCP Internal Medicine; Visit Provider Internal Medicine Cardiovascular Disease | DX: I45.81 Long QT syndrome (principal) | CPT/HCPCS: 93010 ==

== ENCOUNTER → 2024-02-09 17:41 | Outpatient (BNV) | payer OTHER, SELFPAY | PROVIDERS: Admitting Provider Psychiatry & Neurology Psychiatry; Emergency Provider Emergency Medicine; PCP Internal Medicine; Visit Provider Psychiatry & Neurology Psychiatry | DX: F33.2 Major depressive disorder, recurrent severe without psychotic features (principal); F41.9 Anxiety disorder, unspecified | CPT/HCPCS: 90792; 99232; 99239 ==

== ENCOUNTER 2024-06-24 11:50 | Outpatient (AMB) | payer OTHER, SELFPAY ==
[2024-06-24 11:51] VITALS: BP 116/72; PULSE 94; O2SAT 97; BMI 32.3
--- NOTE | 2024-06-24 11:51 | A.OFFPC_ITS ---
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 Accompanied by: Self / Same As Patient Allergies Motrin Allergy (Mild, Uncoded 06/24/24 11:51) stomach upset Medication List - Last Reconciled 06/25/24 by Sung Shen MD No Known Home Meds Tobacco use date assessed: 10/11/23 Dental Screening Dental Screen Date: 10/11/23 HPI Follow Up HPI Details pain right shoulder and elbow for months; no injury [facility] Medical History (Updated 06/25/24 @ 08:54 by Sung Shen MD) Anxiety No known health problems Surgical History History of tubal ligation Family History Father Hypertension Mother Diabetes Maternal Grandmother Breast cancer Daughter In good health Son In good health Sister In good health Sister In good health Brother In good health Social History Housing: Condominium Alcohol intake: unknown Patient Tobacco Use Status: Never used Tobacco Tobacco use type: Cigarette e-Cigarette/Vaping Use: Never Used Second Hand Smoke Exposure: No Substance Use Type: Marijuana service: No Current occupational status: unemployed Sexual orientation: Straight/Heterosexual Cognitive needs: No Hearing needs: No Vision needs: No Questionnaire Thrive Questionnaire Date Thrive assessed: 02/12/24 MIGUEL-7 AMB Questionnaire MIGUEL-7 Date MIGUEL - 7 assessed: 10/11/23 Source: Developed by Drs. Jace Crockett, Catalina Coates, George Meier and colleagues, with an educational pedro from [employer]. Review of Systems Const Denies chills, Denies headache(s) and Denies weight loss ENT Denies headache(s) Card Denies chest pain, Denies syncope, Denies irregular heart rhythm and Denies dyspnea Resp Denies chest congestion, Denies cough and Denies dyspnea GI Denies abdominal pain, Denies change in stool character, Denies nausea and Denies vomiting Musc Denies deformity and Denies joint swelling Neuro Denies syncope and Denies headache(s) Physical exam (Primary Care) Vital Signs: Last Vital Signs Pulse 94 06/24/24 11:51 BP 116/72 06/24/24 11:51 Pulse Ox 97 06/24/24 11:51 Oxygen Delivery Method Room Air 06/24/24 11:51 BMI result Body Mass Index 32.3 Tobacco/Smoking Status: Tobacco use Status Tobacco use date assessed 10/11/23 06/24/24 11:55 Patient Tobacco Use Status Never used Tobacco 06/24/24 11:55 Tobacco use type Cigarette 06/24/24 11:55 e-Cigarette/Vaping Use Never Used 06/24/24 11:55 Thrive Assessment: Date of Thrive Assessment Date Thrive assessed 02/12/24 06/24/24 11:55 Const General: cooperative, comfortable, no acute distress and alert Neck Neck: Yes no lymphadenopathy Thyroid: Thyroid normal Resp Effort & Inspection: normal respiratory effort Auscultation: clear to auscultation bilaterally Percussion: percussion normal Cardio Jugular venous distension: no JVD Palpation: normal PMI Rate: regular rate Rhythm: regular rhythm Heart sounds: S1 normal heart sound present and S2 normal heart sound present GI Inspection: Yes normal to inspection Palpation (GI): No hepatosplenomegaly present Skin General skin exam: no rashes or lesions noted Extrem General: Yes no clubbing, cyanosis or edema Coding Level of Care Code Est Pt Level 3 (17908) Diagnoses Shoulder pain M25.519 Assessment & Plan Assessment & Plan (1) Shoulder pain: Code(s): M25.519 - Pain in unspecified shoulder Category: Medical Plan: refer pt; xr unremarkable Orders: Orders XR elbow RT 2V 06/24/24 M25.529 - Pain in unspecified elbow PT Evaluation and Treatment 06/24/24 M25.519 - Pain in unspecified shoulder
== END 2024-06-24 12:04 | disposition home or self-care (01) ==
PROVIDERS: PCP Internal Medicine; Visit Provider Internal Medicine
DX: M25.519 Pain in unspecified shoulder (principal)

== ENCOUNTER → 2024-06-24 11:50 | Outpatient (BNVA) | payer OTHER, SELFPAY | PROVIDERS: PCP Internal Medicine; Visit Provider Internal Medicine | DX: M25.511 Pain in right shoulder (principal); M25.521 Pain in right elbow | CPT/HCPCS: 99212 ==

== ENCOUNTER 2024-07-23 09:44 | Emergency (ER) | payer OTHER, SELFPAY ==
--- NOTE | ~2024-07-23 | XR_ITS ---
EXAMINATION: XR SHOULDER, RIGHT CLINICAL INFORMATION: pain COMPARISON: 12/06/2023 TECHNIQUE: AP external rotation, Grashey, scapular Y, and axillary views of the right shoulder. FINDINGS: No fracture, dislocation or destructive lesion. No erosive change. No significant change. XR/XR shoulder RT min 2V IMPRESSION: Unremarkable study. Electronically signed by: Earl Conte MD 07/23/2024 12:20 PM JACQUELINE
[2024-07-23 10:07] VITALS: BP 108/75; PULSE 63; RESP 20; TEMP 36.4; O2SAT 99; BMI 28.9
--- NOTE | 2024-07-23 10:43 | ED.GENADULT ---
HPI - General Adult General Chief complaint: Extremity Problem Stated complaint: L arm pain Time Seen by Provider: 07/23/24 10:36 Source: patient and freelance interpreter/translator Mode of arrival: ambulatory Limitations: language barrier History of Present Illness ED Provider: Willi BERGER narrative: Patient is a 44-year-old female presenting to the emergency department with complaint of right shoulder pain for the past 3 years. Denies initial fall or other trauma. Over the past 6 months pain has increased, radiates to elbow. Recently saw PCP for same, had unremarkable xray. Was referred to physical therapy. Denies pain in fingers. Denies weakness, numbness, tingling. complaint: right shoulder pain Onset (ago): year(s) Radiation: distal Severity: severe Quality: aching Pain Consistency: constant Associated symptoms: denies other symptoms Related Data Previous Rx's ?Medication ?Instructions ?Recorded tramadol 50 mg tablet 50 mg PO Q8H PRN pain #20 tabs 07/02/24 prednisone 20 mg tablet See Rx Instructions .Route 07/23/24 .COMPLEX #15 tabs Allergies Allergy/AdvReac Type Severity Reaction Status Date / Time Motrin Allergy Mild stomach Uncoded 07/23/24 10:09 upset Review of Systems Review of Systems: As per HPI Yes all other systems are reviewed and are negative Constitutional: Constitutional: Reports as per HPI [facility] Past Medical History Medical History (Updated 07/24/24 @ 00:01 by Giselle Diallo) Anxiety No known health problems Surgical History History of tubal ligation Family History Family History Father Hypertension Mother Diabetes Maternal Grandmother Breast cancer Daughter In good health Son In good health Sister In good health Sister In good health Brother In good health Social History Social History Housing: Condominium Alcohol intake: unknown Patient Tobacco Use Status: Never used Tobacco Tobacco use type: Cigarette e-Cigarette/Vaping Use: Never Used Second Hand Smoke Exposure: No Substance Use Type: Marijuana Advance Directives: No Advance Directives Information Provided: Yes service: No Current occupational status: unemployed Sexual orientation: Straight/Heterosexual Cognitive needs: No Hearing needs: No Vision needs: No Physical Exam ED Vital Signs: Vital Signs - 24 hr 07/23/24 10:07 07/23/24 13:29 Temperature 97.6 F 97.6 F Pulse Rate 63 63 Respiratory Rate 20 20 Blood Pressure 108/75 108/75 Pulse Oximetry 99 99 Oxygen Delivery Method Room Air Room Air BMI result Body Mass Index 28.9 Vital signs have been reviewed and appear to be correct. Blood pressure normal. Heart rate normal. Respiratory rate normal. Temperature normal. Oxygen saturation normal. Const General: cooperative, healthy appearing and no acute distress Orientation/consciousness: oriented to person, oriented to place, oriented to time and patient oriented x3 Limitations: no limitations HENMT Head: Yes normocephalic and Yes atraumatic Ears: external ears normal General nose exam: Normal external nose present Face and sinus: Yes face symmetric Mouth: oropharynx normal and moist mucous membranes Throat: Yes uvula midline Eyes Pupils: Equal, round and reactive pupils present Neck Neck: Yes normal visual inspection and Yes supple Resp Effort & Inspection: normal respiratory effort and able to speak in complete sentences Auscultation: clear to auscultation bilaterally Cardio Rate: regular rate Rhythm: regular rhythm Heart sounds: S1 normal heart sound present and S2 normal heart sound present GI Palpation (GI): Soft to palpation and nontender Auscultation: normoactive bowel sounds General: Yes no CVA tenderness Back/Spine/Pelvis Back: no CVA tenderness Skin General skin exam: elasticity normal and turgor normal Neuro General: oriented to person, oriented to place, oriented to time, patient oriented x3, gait normal, tone normal, moves all extremities, Normal light touch and pain sensation, no focal motor deficits, CN's II-XI intact bilaterally and deep tendon reflexes 2+ bilaterally Cranial nerves: Yes Equal, round and reactive pupils present Cognition (Neuro): normal cognition Extrem General: Yes full ROM, Yes no pedal edema and Yes no calf tenderness Right upper extremity: shoulder/upper arm Details: normal to inspection, axillary nerve sensory function normal and normal ROM and elbow/forearm Details: normal to inspection, tenderness Location: of the lateral epicondyle, normal ROM and distal pulses intact; no unusual warmth Psych Mental Status: mental status grossly normal Affect: normal affect Thought process: Normal thought process present Medications Administered Discontinued Medications Generic Name Dose Route Start Last Admin Trade Name Freq PRN Reason Stop Dose Admin Ketorolac Tromethamine 30 mg 07/23/24 11:45 07/23/24 11:52 Ketorolac Tromethamine 30 Mg/Ml Vial IM 07/23/24 11:46 30 mg ONCE ONE Administration Prednisone 60 mg 07/23/24 13:09 07/23/24 13:12 Prednisone 20 Mg Tablet PO 07/23/24 13:10 60 mg ONCE ONE Administration Medical Decision Making Medical Decision Making [facility] Narrative: Patient is a 44-year-old female presenting to the emergency department with complaint of right shoulder pain for the past 3 years. On exam patient is awake, A+Ox3, VS WNL, afebrile, normal neurological exam without focal deficits, physical exam findings as above. Given reported symptoms and physical exam findings, initial differential includes arthritis, tendonitis, radiculopathy. Do not suspect avascular necrosis or septic joint. X-ray right shoulder unremarkable. My interpretation is in agreement with the radiologist's interpretation. Will treat patient with tapering course of prednisone. Will refer to orthopedics for further evaluation and management. Follow up with PCP. Return precautions discussed. Patient verbalized understanding of and agreement with plan. In-person sign language interpreter was utilized for all interactions, assessments, and discussions. Differential Diagnosis Differential Diagnoses: The differential diagnosis associated with the presentation includes as per [facility] Independent Interpretation I performed an independent interpretation of an: Plain X-Ray Interpretation: Unremarkable right shoulder x-ray Radiology Impression Discussion of test interpretation with radiology: I have reviewed the radiologist's reading. Radiologist Impression: XR/XR shoulder RT min 2V IMPRESSION: Unremarkable study. External Record Review External record reviewed: Inpatient record, Office record and Outpatient record Prescription Management I considered prescription management with: Other Discharge Plan Discharge Clinical Impression: Chronic right shoulder pain Patient Disposition: Home, Self-Care Instructions: Shoulder Pain (ED) Additional Instructions: You were evaluated in the emergency department today for shoulder pain. You are being discharged home on a tapering course of prednisone which is a steroid to decrease inflammation. You are being referred to orthopedics for further evaluation and management. Prescriptions: New prednisone 20 mg tablet See Rx Instructions .ROUTE .COMPLEX Qty: 15 0RF Rx Instructions: 60mg (3 tabs) x 2 days, then 40mg (2 tabs) x 3 days, then 20mg (1 tab) x 3 days No Action tramadol 50 mg tablet 50 mg PO Q8H PRN (Reason: pain) Qty: 20 0RF [place] [facility] [place] [facility] [facility] [place]Provider Group[place] - 1 week Interventions: ED Discharge Assessment Last Done: 07/23/24 13:29 Discharge Date/Time: 07/23/24 13:29 Print Language: [place]ian
[2024-07-23] MEDS: Ketorolac Tromethamine 30 MG/ML VIAL IM (11:52)
[2024-07-23] MEDS: predniSONE 20 MG TABLET 60 MG PO (13:12)
[2024-07-23 13:29] VITALS: BP 108/75; PULSE 63; RESP 20; TEMP 36.4; O2SAT 99
== END 2024-07-23 13:29 | disposition home or self-care (01) ==
PROVIDERS: Emergency Provider Emergency Medicine; PCP Internal Medicine
DX: M25.511 Pain in right shoulder (principal); G89.29 Other chronic pain
CPT/HCPCS: 73030; 96372; 99283; J1885

== ENCOUNTER 2024-08-30 09:23 | Outpatient (AMB) | payer OTHER, SELFPAY ==
--- NOTE | 2024-08-30 09:34 | A.OFFVIS_ITS ---
Intake Visit Reasons: New Pt - Right shoulder pain Intake Note: Fadia is a 44 year old female who presents today as a new patient for a evaluation of her right shoulder pain. Patient reports ongoing pain for more than 2 years. She mentions pain in her shoulder and elbow. Patient states her pain is constant and at times intolerable, describing her pain at stabbing needles. States difficulty with sleeping or even grabbing a glass of water. No numbness or tingling. Denies injury. States no recent tx to her shoulder however 4 years ago she attended PT. Finds no relief with Tylenol arthritis. Quality Facilitator Required: Yes Quality Facilitator Services: Quality Facilitator Offered & Declined Quality Facilitator Name: Charmaine ID#[id number] Allergies Motrin Allergy (Mild, Uncoded 08/30/24 09:44) stomach upset Medication List - Last Reconciled 08/30/24 by Jerzy Elise PA-C No Known Home Meds HPI HPI New Pt - Right shoulder pain: Details: 44-year-old female presents to the office today for pain in the right shoulder x2 years. She states the pain radiates down to the elbow. She states the pain is at all times, worse with sleeping at night and activities such as mopping. She states about 4 years ago she has PT and has recently tried Tylenol with minimal relief. [facility] Medical History (Updated 08/30/24 @ 09:57 by Jerzy Elise PA-C) Anxiety No known health problems Surgical History History of tubal ligation Family History Father Hypertension Mother Diabetes Maternal Grandmother Breast cancer Daughter In good health Son In good health Sister In good health Sister In good health Brother In good health Social History (Updated 08/30/24 @ 09:45 by SAIGE Cheung) Housing: Condominium Alcohol intake: unknown Patient Tobacco Use Status: Never used Tobacco Tobacco use type: Cigarette e-Cigarette/Vaping Use: Never Used Second Hand Smoke Exposure: No Substance Use Type: Marijuana service: No Current occupational status: unemployed Current occupation: right hand dominant Sexual orientation: Straight/Heterosexual Cognitive needs: No Hearing needs: No Vision needs: No Review of Systems Const All systems reviewed & are unremarkable except as noted in HPI and below Physical Exam Const General: cooperative and no acute distress Orientation/consciousness: patient oriented x3 Resp Effort & Inspection: normal respiratory effort and able to speak in complete sentences Cardio Peripheral pulses: Peripheral pulses 2+ throughout Neuro General: patient oriented x3 Extrem Other: Right shoulder normal to inspection. She has full range of motion in all planes. Tenderness over the proximal biceps tendon with a positive Gates's. Positive Tian. 5/5 rotator cuff strength with discomfort. Neurovascular intact. Results Reviewed Results Reviewed: X-rays of the right shoulder obtained in the office today show type 2 acromion. Assessment & Plan Assessment & Plan (1) Right shoulder tendinitis: Code(s): M77.8 - Other enthesopathies, not elsewhere classified Category: Medical (2) Rotator cuff impingement syndrome: Code(s): M75.40 - Impingement syndrome of unspecified shoulder Category: Medical Plan I recommend a course of physical therapy to work on rotator cuff and periscapular stabilization techniques. I did offer her a cortisone injection today to help with her pain which she declined due to a history of severe pain with previous knee injections. I sent her prescription for Celebrex to the pharmacy to take twice a day for 2 weeks. I stressed the importance of compliance with physical therapy as this will be helpful. His symptoms persist or worsen or she is interested in an injection she will contact our office otherwise follow-up as needed. Orders: Orders PT Evaluation and Treatment Today M75.40 - Impingement syndrome of unspecified shoulder, M77.8 - Other enthesopathies, not elsewhere classified Medications: New celecoxib (Celebrex) 200 mg PO BID 60 caps 3RF 30 days Coding Level of Care Code Est Pt Level 3 (80997) Complex EM visit Add On G2211 Diagnoses Right shoulder tendinitis M77.8 Rotator cuff impingement syndrome M75.40
== END 2024-08-30 10:04 | disposition home or self-care (01) ==
PROVIDERS: PCP Internal Medicine; Visit Provider Physician Assistant
DX: M77.8 Other enthesopathies, not elsewhere classified (principal); M75.40 Impingement syndrome of unspecified shoulder
CPT/HCPCS: 99213; G2211

== ENCOUNTER → 2024-08-30 09:23 | Outpatient (BNVA) | payer OTHER, SELFPAY | PROVIDERS: PCP Internal Medicine; Visit Provider Physician Assistant | DX: M77.8 Other enthesopathies, not elsewhere classified (principal); M75.40 Impingement syndrome of unspecified shoulder | CPT/HCPCS: 99212 ==

== ENCOUNTER 2024-09-27 10:44 | Outpatient (AMB) | payer OTHER, SELFPAY ==
[2024-09-27 10:54] VITALS: BP 116/78; PULSE 67; O2SAT 99; BMI 32.7
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
--- OUTSIDE RECORDS SUMMARY | 2024-09-27 11:33 | XMS_ITS | Encounter Summary ---
Author Organization [facility] Address [address] [facility] [address] [place] [address] Care Team Providers Care Consumer Advocate Name Role Phone Unavailable Primary Care Provider Unavailabl e Encounter Details Date Type Department Care Team (Latest Contact Info) Description 01/18/2019 Abstract [facility] CONVERSIONS Dental, Provider, DDS Social History Tobacco Use Types Packs/Day Years Used Date Smoking Tobacco: Never Assessed Comments Unknown Sex and Gender Information Value Date Recorded Sex Assigned at Female 06/13/2022 10:32 AM EDT Legal Sex Female 10:32 AM EDT Gender Identity Female 06/19/2023 12:52 PM EST Sexual Orientation Straight 06/19/2023 12 :52 PM EST documented as of this encounter Plan of Treatment Not on file documented as of this encounter Visit Diagnoses Not on filedocumented in this encounter
--- OUTSIDE RECORDS SUMMARY | 2024-09-27 11:33 | XMS_ITS | Clinical Summary ---
Author Organization [employer] Address [address] [facility] [address] [place] [address] Care Team Providers Care Public Utilities Sales Representative Name Role Phone Unavailable Primary Care Provider Unavailabl e Allergies No known active allergies Medications oxyCODONE (Roxicodone) 5 MG immediate release tabletIndications :Symptomatic irreversible pulpitis Take 1 tablet (5 mg) by mouth every 6 (six) hours if needed for severe pain for up to 5 doses. 5 tablet 2023 Active oxyCODONE (Roxicodone) 5 MG immediate release tabletIndications :History of tooth extraction, unspecified edentulism class Take 1 tablet (5 mg) by mouth every 6 (six) hours if needed for severe pain for up to 10 doses. 10 tablet 07/04/2023 Active Active Problems Problem Noted Date Diagnosed Date Widened periodontal ligament space 06/27/2023 Acute pulpitis 06/27/2023 Closed fracture of tooth 06/27/2023 Immunizations Name Administration Dates Next Due Influenza injectable quadrivalent preservative f ree 06/06/2023 Social History Tobacco Use Types Packs/Day Years Used Date Smoking Tobacco: Former Cigarettes Passive Smoke Exposure: Never Smokeless Tobacco: Former Tobacco Cessation:Counseling Given: Not Answered Alcohol Use Standard Drinks/Week Comments Defer 0 (1 standard drink = 0.6 oz pur e alcohol) Comments Unknown Sex and Gender Information Value Date Recorded Sex Assigned at Female 06/13/2022 10:32 AM EDT Legal Sex Female 10:32 AM EDT Gender Identity Female 06/19/2023 12:52 PM EST Sexual Orientation Straight 06/19/2023 12 :52 PM EST Last Filed Vital Signs Vital Sign Reading Time Taken Comments Blood Pressure 122/72 07/04/2023 2:18 PM EST Pulse - - Temperature - - Respiratory Rate - - Oxygen Saturation - - Inhaled Oxygen Concentration - - Weight - - Height - - Body Mass Index - - Plan of Treatment Health Maintenance Due Date Last Done Comments Depression Screening 1981 HIV Screening 1981 SDOH Screening 1981 Alcohol/Substance Use Screening 1993 Family Planning (PISQ) 1996 Hepatitis C Screening 1999 DTaP/Tdap/Td Vaccines (1 - Tdap) 2000 Hepatitis B Vaccines (1 of 3 - 19+ 3-dose series) 2000 Pap Smear 2002 Cervical Cancer Screening 2011 HPV/Cotest 2011 Dental Oral Exam 07/21/2019 01/18/2019, 05/10/2017 Dental Prophylaxis 07/21/2019 01/18/2019, 07/18/2017 Dental X-Ray: Full Mouth 05/11/2020 05/10/2017 Mammogram 2021 COVID-19 Vaccine ( season) 2024 Influenza Vaccine (#1) 2024 06/06/2023 Dental X-Ray: Bitewings 06/28/2024 06/27/20, 06/19/2023, 01/18/2019, Additional history exists Tobacco Screening 07/04/2024 07/04/2023 Zoster Vaccines (1 of 2) 2031 RSV Patients and Patients Aged 60 years or older (1 - 1-dose 75+ series) 2056 HIB Vaccines Aged Out No longer eligi ble based on patient's age to complete this topic HPV Vaccines Aged Out No longer eligi ble based on patient's age to complete this topic Hepatitis A Vaccines Aged Out No long er eligible based on patient's age to complete this topic IPV Vaccines Aged Out No longer eligi ble based on patient's age to complete this topic Meningococcal Vaccine Aged Out No alecia clovis eligible based on patient's age to complete this topic Pneumococcal Vaccine: Pediatrics (0 to 5 Years) and At-Risk Patients (6 to 49) Years) Aged Out No longer eligible based on patient's age to complete this topic RSV under 20 months Aged Out No longe r eligible based on patient's age to complete this topic Rotavirus Vaccines Aged Out No longer eligible based on patient's age to complete this topic Procedures Procedure Name Priority Date/Time Associated Diagnosis Comments BITEWING - SINGLE RADIOGRAPHIC IMAGE Routine 06/27/2023 11:00 AM EST PROPHYLAXIS - ADULT Routine 01/18/2019 1 2:00 AM EDT PERIODIC ORAL EVALUATION - ESTABLISHED PATIENT Routine 01/18/2019 12:00 AM EDT INTRAORAL - COMPLETE SERIES OF RADIOGRAPHIC IMAGES Routine 05/10/2017 12:00 AM EDT from Last 3 Months or Most Recently Relevant to Health Maintenance [facility] MEDICAID STAND ADULT * Guarantor: Fadia Herbert Account Type Relation to Patient Date of Phone Billing Address Personal/Family Self [address] [place] [address]
== END 2024-09-27 11:05 | disposition home or self-care (01) ==
PROVIDERS: PCP Internal Medicine; Visit Provider Internal Medicine
DX: M75.40 Impingement syndrome of unspecified shoulder (principal)

== ENCOUNTER → 2024-09-27 10:44 | Outpatient (BNVA) | payer OTHER, SELFPAY | PROVIDERS: PCP Internal Medicine; Visit Provider Internal Medicine | DX: M75.40 Impingement syndrome of unspecified shoulder (principal) | CPT/HCPCS: 99212 ==

== ENCOUNTER 2024-10-17 12:39 | Outpatient (AMB) | payer OTHER, SELFPAY ==
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
[2024-10-17 13:03] VITALS: BP 122/66; PULSE 84; TEMP 36.4; O2SAT 98; BMI 32.0
--- OUTSIDE RECORDS SUMMARY | 2024-10-17 15:11 | XMS_ITS | Clinical Summary ---
Author Organization [employer] Address [address] [place] [address] [address] [place] [address] Care Team Providers Care Banana Room Cutter Name Role Phone Unavailable Primary Care Provider [...] Most Recently Relevant to Health Maintenance [facility] MEDICAID STAND ADULT * Guarantor: Fadia Herbert Account Type Relation to Patient Date of Phone Billing Address Personal/Family Self [address] [place] [address]
--- OUTSIDE RECORDS SUMMARY | 2024-10-17 15:11 | XMS_ITS | Encounter Summary ---
Author Organization [facility] Address [address] [facility] [address] [place] [address] Care Team Providers Care Coke Production Heater Name Role Phone Unavailable Primary Care Provider Unavailabl e Encounter Details Date Type Department Care Team (Latest Contact Info) Description 01/18/2019 Abstract [facility] CONVERSIONS Dental, Provider, DDS Social History Tobacco [...]
--- OUTSIDE RECORDS SUMMARY | 2024-10-17 15:11 | XMS_ITS | Patient Health Record ---
Author Organization [facility] Address [address] [place] [address] Support Name Relationship Address Phone AICHA FRY Emergency Contact URB L [address]anda [address] [place] [address] LULA FLYNN Guarantor Unknown Reason For Referral No Information Social History Sex Assigned At : Social History Observation Description Sex Assigned At Female Plan Of Treatment No Information
== END 2024-10-17 13:32 | disposition home or self-care (01) ==
PROVIDERS: PCP Internal Medicine; Visit Provider Internal Medicine
DX: Z00.00 Encounter for general adult medical examination without abnormal findings (principal)

== ENCOUNTER → 2024-10-17 12:39 | Outpatient (BNVA) | payer OTHER, SELFPAY | PROVIDERS: PCP Internal Medicine; Visit Provider Internal Medicine | DX: Z00.00 Encounter for general adult medical examination without abnormal findings (principal) | CPT/HCPCS: 99396 ==

== ENCOUNTER 2024-11-01 13:29 | Outpatient (REF) | payer OTHER, SELFPAY ==
--- OUTSIDE RECORDS SUMMARY | 2024-11-01 15:50 | XMS_ITS | Patient Health Record ---
Author Organization [facility] Address [address] [place] [address] Support Name Relationship Address Phone AICHA FRY Emergency Contact URB L CAROLIN[address]hawanda [address] [place] [address] LULA FLYNN Guarantor Unknown [phone] Reason For Referral No Information Social History Sex Assigned At : Social History Observation Description Sex Assigned At Female Plan Of Treatment No Information
--- OUTSIDE RECORDS SUMMARY | 2024-11-01 15:50 | XMS_ITS | Encounter Summary ---
Author Organization [employer] Address [address] [facility] 7 [place] [address] Care Team Providers Care Part Maker Name Role Phone Unavailable Primary Care Provider Unavailabl e Encounter Details Date Type Department Care Team (Latest Contact Info) Description 01/18/2019 Abstract [facility] CONVERSIONS Dental, Provider, DDS Social History [...] as of this encounter Plan of Treatment Upcoming Encounters Date Type Department Care Team (Late st Contact Info) Description 11/25/2024 1:30 PM EDT Office Visit [facility] ADULT DENTAL [address] [place] [address] Tia Ferrell DDS [address] [place] [address] documented as of this encounter Visit Diagnoses Not on filedocumented in this encounter
--- OUTSIDE RECORDS SUMMARY | 2024-11-01 15:50 | XMS_ITS | Encounter Summary ---
Author Organization [employer] Address [address] [facility] [address] [place] [address] Care Team Providers Care Rn Residential Name Role Phone Unavailable Primary Care Provider Unavailabl e Reason for Visit * Reason Comments Dental Pain Broken filling Encounter Details Date Type Department Care Team (Late st Contact Info) Description 10/24/2024 3:30 PM EDT Office Visit [facility] ADULT DENTAL [address] [place] [address] Tia Ferrell DDS [address] [place] [address] Fracture of dental buddhist (Primary Dx) Social History Tobacco Use Types Packs/Day Years Used Date Smoking Tobacco: Former Cigarettes Passive Smoke Exposure: Never Smokeless Tobacco: Former Alcohol Use Standard Drinks/Week Comments Yes 0 (1 standard drink = 0.6 oz pur e alcohol) Comments Unknown Sex and Gender Information Value Date Recorded Sex Assigned at Female 06/13/2022 10:32 AM EDT Legal Sex Female 10:32 AM EDT Gender Identity Female 06/19/2023 12:52 PM EST Sexual Orientation Straight 06/19/2023 12 :52 PM EST documented as of this encounter Last Filed Vital Signs Vital Sign Reading Time Taken Comments Blood Pressure 128/80 10/24/2024 3:43 PM EDT Pulse 69 10/24/2024 3:43 PM EDT Temperature - - Respiratory Rate - - Oxygen Saturation - - Inhaled Oxygen Concentration - - Weight - - Height - - Body Mass Index - - documented in this encounter Progress Notes * Tia Ferrell DDS - 10/24/2024 3:30 PM EDT Dental procedures in this visit D0140 - LIMITED ORAL EVALUATION - PROBLEM FOCUSED (Completed) Service provider: Tia Ferrell DDS Billing provider: Tia Ferrell DDS [id number] - INTRAORAL - PERIAPICAL FIRST RADIOGRAPHIC IMAGE (Completed) Service provider: Tia Ferrell DDS Billing provider: Tia Ferrell DDS [id number] - CASE PRESENTATION, DETAILED AND EXTENSIVE TREATMENT PLANNING (Completed) Service provider: Tia Ferrell DDS Billing provider: Tia Ferrell DDS Patient ID: Fadia Herbert is a 44 y.o. female. Time Out: Timeout Date: 10/24/24 Location: [facility] Tooth: #4 Procedure: Limited exam Verified the above with patient, licensed loan officer assistant, and provider. Confirmed via patient's chart, intraorally and by radiographs. Buffing Turner And Counter: not applicable Chief Complaint Patient presents with Dental Pain Broken filling Medical Hx: Vitals: Blood pressure 128/80, pulse 69. History reviewed. No pertinent past medical history. Medications: Outpatient Encounter Medications as of 10/24/2024 Medication Sig Dispense Refill oxyCODONE (Roxicodone) 5 MG immediate release tablet Take 1 tablet (5 mg) by mouth every 6 (six) hours if needed for severe pain for up to 5 doses. 5 tablet 0 oxyCODONE (Roxicodone) 5 MG immediate release tablet Take 1 tablet (5 mg) by mouth every 6 (six) hours if needed for severe pain for up to 10 doses. 10 tablet 0 No facility-administered encounter medications on file as of 10/24/2024. Subjective: Pain: mild Duration: 1 hour ago. Pt very apprehensive of any dental discomfort Objective: Tooth: #4 Radiographs Taken: PA(s) Radiographic Findings: Fractured/Missing Filling Clinical Findings: MO fracture of amalgam filling Swelling: cold sensitivity Endo Testing: Cold: Hypersensitive, non-lingering Percussion: Normal, no pain Palpation: Normal, nopain Diagnosis: Fracture dental buddhist; reversible pulpitis Assessment/Plan: heather Pt tolerated procedure well, all questions answered. Dismissed in good condition. NV: heather Glaze Handler: MARGARET Santoro Dentist: Tia Ferrell DDS documented in this encounter Plan of Treatment Upcoming Encounters Date Type Department Care Team (Late st Contact Info) Description 11/25/2024 1:30 PM EDT Office Visit [facility] ADULT DENTAL [address] [place] [address] Peña-CowanManuel abrahamfemia, DDS [address] [place] [address] Scheduled Orders Name Type Priority Associated Diagnoses Orde r Schedule 4 MO 4 MO RESIN-BASED COMPOSITE - 2 SURF, POSTERIOR Dental Routine [address] arting 10/24/2024 documented as of this encounter Procedures Procedure Name Priority Date/Time Associated Diagnosis Comments LIMITED ORAL EVALUATION - PROBLEM FOCUSED Routine 10/24/2024 3:30 PM EDT Fracture of dental buddhist INTRAORAL - PERIAPICAL FIRST RADIOGRAPHIC IMAGE Routine 10/24/2024 3:30 PM EDT Fracture of dental buddhist CASE PRESENTATION, DETAILED AND EXTENSIVE TREATMENT PLANNING Routine 10/24/2024 3:30 PM EDT Fracture of dental buddhist documented in this encounter Visit Diagnoses Diagnosis Fracture of dental buddhist- Primary documented in this encounter
--- OUTSIDE RECORDS SUMMARY | 2024-11-01 15:50 | XMS_ITS | Clinical Summary ---
Author Organization [employer] Address [address] [facility] [address] [place] [address] Care Team Providers Care Homeopathic Doctor Name Role Phone Unavailable Primary Care Provider Unavailabl e Allergies Active Allergy Reactions Criticality Noted Date Comments Ibuprofen 10/24/2024 Medications oxyCODONE (Roxicodone) 5 MG immediate release [...] pulpitis 06/27/2023 Closed fracture of tooth 06/27/2023 Encounters Date Type Department Care Team Description 10/24/2024 3:30 PM EDT Office Visit [facility] ADULT DENTAL [address] [place] [address] Tia Ferrell, DDS Fracture of dental restorationist (Primary Dx) from Last 3 Months Immunizations Name Administration Dates Next Due Influenza injectable quadrivalent preservative f ree 06/06/2023 Social History Tobacco Use Types Packs/Day Years Used Date Smoking Tobacco: Former Cigarettes Passive Smoke Exposure: Never Smokeless Tobacco: Former Tobacco Cessation:Counseling Given: Not Answered Alcohol Use Standard Drinks/Week Comments Yes 0 [...] Mass Index - - Plan of Treatment Upcoming Encounters Date Type Department Care Team (Late st Contact Info) Description 11/25/2024 1:30 PM EDT Office Visit [facility] ADULT DENTAL [address] [place] [address] Peña-Cowan, Tia, DDS [address] [place], [place] [id number] Health Maintenance Due Date Last Done Comments [...] 05/11/2020 05/10/2017 Mammogram 2021 COVID-19 Vaccine ( - 2023- season) 2024 Influenza Vaccine (#1) 2024 06/06/2023 Dental X-Ray: Bitewings 06/28/2024 06/27/20 23, 06/19/2023, 01/18/2019, Additional history exists Tobacco Screening 10/24/2025 10/24/2024 Zoster Vaccines (1 of 2) 2031 RSV [...] Procedure Name Priority Date/Time Associated Diagnosis Comments CASE PRESENTATION, DETAILED AND EXTENSIVE TREATMENT PLANNING Routine 10/24/2024 3:30 PM EDT Fracture of dental restorationist INTRAORAL - PERIAPICAL FIRST RADIOGRAPHIC IMAGE Routine 10/24/2024 3:30 PM EDT Fracture of dental restorationist LIMITED ORAL EVALUATION - PROBLEM FOCUSED Routine 10/24/2024 3:30 PM EDT Fracture of dental restorationist BITEWING - SINGLE RADIOGRAPHIC IMAGE Routine 06/27/2023 11:00 AM EST PROPHYLAXIS - ADULT Routine 01/18/2019 1 2:00 AM EDT PERIODIC ORAL EVALUATION - ESTABLISHED PATIENT Routine 01/18/2019 12:00 AM EDT INTRAORAL - COMPLETE SERIES OF RADIOGRAPHIC IMAGES Routine 05/10/2017 12:00 AM EDT from Last 3 Months or Most Recently Relevant to Health Maintenance Insurance [facility] * Guarantor: Fadia Herbert Account Type Relation to Patient Date of Phone Billing Address Dental Self [address] [place] [address] D[facility]AL-[facility] MEDICAID STAND ADULT
== END 2024-11-01 13:30 | disposition home or self-care (01) ==
LOC: HO.MAMMO 13:29
PROVIDERS: PCP Internal Medicine; Visit Provider Internal Medicine
DX: Z12.31 Encounter for screening mammogram for malignant neoplasm of breast (principal)
CPT/HCPCS: 77063; 77067

== ENCOUNTER → 2024-11-01 13:30 | Outpatient (BNV) | payer OTHER, SELFPAY | PROVIDERS: PCP Internal Medicine; Visit Provider Internal Medicine | DX: Z12.31 Encounter for screening mammogram for malignant neoplasm of breast (principal) | CPT/HCPCS: 77063; 77067 ==